=== PATIENT | female | born 1940 | race Caucasian/White ===

== ENCOUNTER 2018-04-28 20:28 | Emergency (ER) | payer SELFPAY, OTHER ==
[2018-04-29 00:49] LABS: ADD MAN DIFF? NO
[2018-04-29 00:52] LABS: WHITE BLOOD COUNT 3.9 10^3/ul (4.8-10.8)
[2018-04-29 00:52] LABS: BASOPHILS % 0.5 % (0.0-2.0); EOSINOPHILS # 0.1 10^3/ul (0.0-0.5); EOSINOPHILS % 2.1 % (0.0-7.0); HEMATOCRIT 32.7 % (37.0-47.0); HEMOGLOBIN 11.2 g/dl (12.0-16.0); LYMPHOCYTES # 1.3 10^3/ul (0.8-2.9); LYMPHOCYTES % 32.6 % (15.0-51.0); MEAN CORPUSCULAR HEMOGLOBIN 30.6 pg (29.0-33.0); MEAN CORPUSCULAR HGB CONC 34.3 g/dl (32.0-37.0); MEAN CORPUSCULAR VOLUME 89.3 fl (82.0-101.0); MEAN PLATELET VOLUME 9.7 fl (7.4-10.4); MONOCYTE # 0.5 10^3/ul (0.3-0.9); MONOCYTES % 11.8 % (0.0-11.0); NEUTROPHILS % 52.5 % (39.0-77.0); PLATELET COUNT 106 10^3/UL (140-415); RED BLOOD COUNT 3.66 10^6/ul (4.20-5.40); RED CELL DISTRIBUTION WIDTH 16.1 % (11.5-14.5)
[2018-04-29 01:11] LABS: INR 1.04; PROTIME 13.7 Sec (11.9-14.9); PT RATIO 1.1
[2018-04-29 01:16] LABS: ALANINE AMINOTRANSFERASE 48 IU/L (13-69); ALBUMIN 3.4 g/dl (3.3-4.9); ALKALINE PHOSPHATASE 219 IU/L (42-121); ANION GAP 13 (8-16); ASPARTATE AMINO TRANSFERASE 49 IU/L (15-46); BILIRUBIN,INDIRECT 1.5 mg/dl (0-1.1); BILIRUBIN,TOTAL 1.5 mg/dl (0.2-1.3); BLOOD UREA NITROGEN 13 mg/dl (7-20); CARBON DIOXIDE 24 mmol/L (21-31); CHLORIDE 99 mmol/L (97-110); CREATININE 0.66 mg/dl (0.44-1.00); GLUCOSE 100 mg/dl (70-220); LIPASE 403 U/L (23-300); POTASSIUM 4.1 mmol/L (3.5-5.1); SODIUM 132 mmol/L (135-144); TOTAL PROTEIN 7.6 g/dl (6.1-8.1)
== END 2018-04-29 03:41 | disposition home or self-care (01) ==
LOC: E/R 20:28
DX: K70.31 Alcoholic cirrhosis of liver with ascites (principal); D72.819 Decreased white blood cell count, unspecified; D50.9 Iron deficiency anemia, unspecified; D69.6 Thrombocytopenia, unspecified; E87.1 Hypo-osmolality and hyponatremia; E80.6 Other disorders of bilirubin metabolism; R74.0 Nonspecific elevation of levels of transaminase and lactic acid dehydrogenase [LDH]; E11.9 Type 2 diabetes mellitus without complications
CPT/HCPCS: 36415; 80053; 83690; 85025; 85610; 99283

== ENCOUNTER 2018-06-15 11:49 | Inpatient (IN) | payer OTHER ==
[2018-06-15 12:37] LABS: ADD MAN DIFF? NO
[2018-06-15 12:42] LABS: BASOPHILS % 0.8 % (0.0-2.0); EOSINOPHILS # 0.1 10^3/ul (0.0-0.5); EOSINOPHILS % 1.2 % (0.0-7.0); HEMATOCRIT 33.5 % (37.0-47.0); HEMOGLOBIN 11.4 g/dl (12.0-16.0); LYMPHOCYTES # 1.4 10^3/ul (0.8-2.9); LYMPHOCYTES % 28.7 % (15.0-51.0); MEAN CORPUSCULAR HEMOGLOBIN 30.3 pg (29.0-33.0); MEAN CORPUSCULAR VOLUME 89.1 fl (82.0-101.0); MONOCYTE # 0.5 10^3/ul (0.3-0.9); MONOCYTES % 10.1 % (0.0-11.0); NEUTROPHIL # 2.9 10^3/ul (1.6-7.5); NEUTROPHILS % 58.8 % (39.0-77.0); PLATELET COUNT 202 10^3/UL (140-415); RED BLOOD COUNT 3.76 10^6/ul (4.20-5.40); RED CELL DISTRIBUTION WIDTH 14.6 % (11.5-14.5)
[2018-06-15 12:59] LABS: AMMONIA 75 umol/l (9-30)
[2018-06-15 13:06] LABS: ANION GAP 14 (5-13); BLOOD UREA NITROGEN 24 mg/dl (7-20); CARBON DIOXIDE 21 mmol/L (21-31); CHLORIDE 98 mmol/L (97-110); CHOL/HDL RATIO 2.7 RATIO; CHOLESTEROL 147 mg/dl (100-200); CREATININE 0.79 mg/dl (0.44-1.00); GLUCOSE 129 mg/dl (70-220); HDL CHOLESTEROL 53 mg/dl (33-92); LDL CHOLESTEROL,CALCULATED 78 mg/dl; POTASSIUM 4.1 mmol/L (3.5-5.1); SODIUM 133 mmol/L (135-144); TRIGLYCERIDES 81 mg/dl (0-149)
[2018-06-15 13:08] LABS: INR 1.18; PROTIME 15.2 Sec (11.9-14.9); PT RATIO 1.2
[2018-06-15 13:09] LABS: PARTIAL THROMBOPLASTIN TIME 34.3 Sec (23.0-35.0)
[2018-06-15 13:18] LABS: TROPONIN-I < 0.012 ng/ml (0.000-0.120)
[2018-06-15 13:51] LABS: HEMOGLOBIN A1C 5.2 % (0-5.9)
[2018-06-15] MEDS: LACTULOSE 30ML CUP PO ×3 (13:57→23:11)
[2018-06-15] MEDS ORDERED: ACETAMINOPHEN 325 MG TAB PO ×2 (14:00→14:30)
[2018-06-15] MEDS ORDERED: ONDANSETRON 4 MG INJ IV ×2 (14:00→14:30)
[2018-06-15] MEDS ORDERED: morphine 2 MG INJ IV (14:30)
[2018-06-15] MEDS ORDERED: NACL 0.9% 3 ML SYG IV (14:30)
[2018-06-15] MEDS ORDERED: HYDROCODONE/APAP (5/325) TAB PO (14:30)
[2018-06-15 14:51] LABS: ALANINE AMINOTRANSFERASE 42 IU/L (13-69); ALBUMIN 3.8 g/dl (3.3-4.9); ALKALINE PHOSPHATASE 190 IU/L (42-121); ASPARTATE AMINO TRANSFERASE 54 IU/L (15-46); BILIRUBIN,INDIRECT 1.8 mg/dl (0-1.1); BILIRUBIN,TOTAL 1.8 mg/dl (0.2-1.3); TOTAL PROTEIN 7.5 g/dl (6.1-8.1)
[2018-06-15] MEDS: SOD CHLORIDE 0.9% 1,000 ML IV (18:28)
[2018-06-15] MEDS: PROPRANOLOL 10 MG TAB PO (21:00)
[2018-06-15] MEDS: RIFAXIMIN 550 MG TAB PO (22:54)
[2018-06-16 05:46] LABS: ADD MAN DIFF? NO
[2018-06-16 05:54] LABS: WHITE BLOOD COUNT 4.4 10^3/ul (4.8-10.8)
[2018-06-16 05:54] LABS: BASOPHILS % 0.7 % (0.0-2.0); EOSINOPHILS # 0.1 10^3/ul (0.0-0.5); EOSINOPHILS % 1.4 % (0.0-7.0); HEMATOCRIT 25.7 % (37.0-47.0); LYMPHOCYTES # 1.4 10^3/ul (0.8-2.9); LYMPHOCYTES % 32.4 % (15.0-51.0); MEAN CORPUSCULAR HEMOGLOBIN 31.1 pg (29.0-33.0); MEAN CORPUSCULAR VOLUME 88.9 fl (82.0-101.0); MEAN PLATELET VOLUME 10.6 fl (7.4-10.4); MONOCYTE # 0.6 10^3/ul (0.3-0.9); MONOCYTES % 13.8 % (0.0-11.0); NEUTROPHIL # 2.3 10^3/ul (1.6-7.5); NEUTROPHILS % 51.5 % (39.0-77.0); PLATELET COUNT 141 10^3/UL (140-415); RED BLOOD COUNT 2.89 10^6/ul (4.20-5.40); RED CELL DISTRIBUTION WIDTH 14.7 % (11.5-14.5)
[2018-06-16 06:02] LABS: HEMOGLOBIN A1C 5.4 % (0-5.9)
[2018-06-16 06:15] LABS: AMMONIA 52 umol/l (9-30)
[2018-06-16 06:27] LABS: ALANINE AMINOTRANSFERASE 43 IU/L (13-69); ALBUMIN 2.9 g/dl (3.3-4.9); ALBUMIN/GLOBULIN RATIO 0.93; ALKALINE PHOSPHATASE 150 IU/L (42-121); ANION GAP 11 (5-13); ASPARTATE AMINO TRANSFERASE 46 IU/L (15-46); BILIRUBIN,INDIRECT 1.5 mg/dl (0-1.1); BILIRUBIN,TOTAL 1.5 mg/dl (0.2-1.3); BLOOD UREA NITROGEN 17 mg/dl (7-20); CALCIUM 8.3 mg/dl (8.4-10.2); CARBON DIOXIDE 20 mmol/L (21-31); CHLORIDE 104 mmol/L (97-110); CREATININE 0.56 mg/dl (0.44-1.00); GLUCOSE 108 mg/dl (70-220); POTASSIUM 3.8 mmol/L (3.5-5.1); SODIUM 135 mmol/L (135-144)
[2018-06-16] MEDS: LACTULOSE 30ML CUP PO ×2 (07:07→11:52)
[2018-06-16] MEDS: PANTOPRAZOLE (EC) 40 MG TAB PO (07:07)
[2018-06-16] MEDS: PROPRANOLOL 10 MG TAB PO ×2 (08:22→21:28)
[2018-06-16] MEDS: SPIRONOLACTONE 50 MG TAB PO (08:23)
[2018-06-16] MEDS: FUROSEMIDE 40 MG TAB PO (08:23)
[2018-06-16] MEDS: RIFAXIMIN 550 MG TAB PO ×2 (08:23→21:28)
[2018-06-16 17:54] LABS: ADD UMIC NO; UR ASCORBIC ACID NEGATIVE (NEGATIVE); UR BILIRUBIN (Dip) NEGATIVE (NEGATIVE); UR BLOOD (Dip) NEGATIVE (NEGATIVE); UR CLARITY CLEAR (CLEAR); UR COLOR YELLOW (YELLOW); UR GLUCOSE (Dip) NEGATIVE (NEGATIVE); UR KETONES (Dip) NEGATIVE (NEGATIVE); UR LEUKOCYTE ESTERASE (Dip) NEGATIVE Leu/ul (NEGATIVE); UR NITRITE (Dip) NEGATIVE (NEGATIVE); UR TOTAL PROTEIN (Dip) NEGATIVE (NEGATIVE); UR UROBILINOGEN (Dip) 2+ mg/dL (NEGATIVE)
[2018-06-16 18:10] LABS: AMPHETAMINE/METHAMPHETAMINE Negative (NEGATIVE); BARBITURATES Negative (NEGATIVE); BENZODIAZEPINES Negative (NEGATIVE); CANNABINOIDS Negative (NEGATIVE); COCAINE Negative (NEGATIVE); OPIATES Negative (NEGATIVE)
[2018-06-17 06:05] LABS: ADD MAN DIFF? NO
[2018-06-17 06:10] LABS: BASOPHILS % 0.7 % (0.0-2.0); EOSINOPHILS # 0.1 10^3/ul (0.0-0.5); EOSINOPHILS % 2.3 % (0.0-7.0); HEMOGLOBIN 9.1 g/dl (12.0-16.0); LYMPHOCYTES # 1.3 10^3/ul (0.8-2.9); LYMPHOCYTES % 28.9 % (15.0-51.0); MEAN CORPUSCULAR HEMOGLOBIN 30.4 pg (29.0-33.0); MEAN CORPUSCULAR HGB CONC 33.7 g/dl (32.0-37.0); MEAN CORPUSCULAR VOLUME 90.3 fl (82.0-101.0); MEAN PLATELET VOLUME 10.4 fl (7.4-10.4); MONOCYTE # 0.6 10^3/ul (0.3-0.9); MONOCYTES % 14.3 % (0.0-11.0); NEUTROPHIL # 2.4 10^3/ul (1.6-7.5); NEUTROPHILS % 53.6 % (39.0-77.0); PLATELET COUNT 124 10^3/UL (140-415); RED BLOOD COUNT 2.99 10^6/ul (4.20-5.40); RED CELL DISTRIBUTION WIDTH 14.4 % (11.5-14.5)
[2018-06-17 06:10] LABS: WHITE BLOOD COUNT 4.4 10^3/ul (4.8-10.8)
[2018-06-17] MEDS: PANTOPRAZOLE (EC) 40 MG TAB PO (06:24)
[2018-06-17 06:36] LABS: ANION GAP 6 (5-13); BLOOD UREA NITROGEN 14 mg/dl (7-20); CALCIUM 8.2 mg/dl (8.4-10.2); CARBON DIOXIDE 23 mmol/L (21-31); CHLORIDE 103 mmol/L (97-110); GLUCOSE 122 mg/dl (70-220); POTASSIUM 3.8 mmol/L (3.5-5.1); SODIUM 132 mmol/L (135-144)
[2018-06-17 07:06] LABS: AMMONIA 129 umol/l (9-30)
[2018-06-17] MEDS: PROPRANOLOL 10 MG TAB PO ×2 (08:10→21:02)
[2018-06-17] MEDS: RIFAXIMIN 550 MG TAB PO ×2 (08:10→20:57)
[2018-06-17] MEDS: FUROSEMIDE 40 MG TAB PO (08:11)
[2018-06-17] MEDS: SPIRONOLACTONE 50 MG TAB PO (08:11)
[2018-06-17] MEDS: LACTULOSE 30ML CUP PO ×3 (08:11→22:22)
[2018-06-18] MEDS: PANTOPRAZOLE (EC) 40 MG TAB PO (05:50)
[2018-06-18] MEDS: LACTULOSE 30ML CUP PO ×3 (05:50→21:31)
[2018-06-18 06:12] LABS: ADD MAN DIFF? NO
[2018-06-18 06:22] LABS: WHITE BLOOD COUNT 5.2 10^3/ul (4.8-10.8)
[2018-06-18 06:22] LABS: BASOPHILS % 0.8 % (0.0-2.0); EOSINOPHILS # 0.1 10^3/ul (0.0-0.5); EOSINOPHILS % 2.1 % (0.0-7.0); HEMATOCRIT 26.3 % (37.0-47.0); LYMPHOCYTES # 1.5 10^3/ul (0.8-2.9); LYMPHOCYTES % 28.5 % (15.0-51.0); MEAN CORPUSCULAR HEMOGLOBIN 30.7 pg (29.0-33.0); MEAN CORPUSCULAR HGB CONC 34.2 g/dl (32.0-37.0); MEAN CORPUSCULAR VOLUME 89.8 fl (82.0-101.0); MEAN PLATELET VOLUME 10.5 fl (7.4-10.4); MONOCYTE # 0.8 10^3/ul (0.3-0.9); MONOCYTES % 14.8 % (0.0-11.0); NEUTROPHIL # 2.8 10^3/ul (1.6-7.5); NEUTROPHILS % 53.4 % (39.0-77.0); PLATELET COUNT 125 10^3/UL (140-415); RED BLOOD COUNT 2.93 10^6/ul (4.20-5.40); RED CELL DISTRIBUTION WIDTH 14.6 % (11.5-14.5)
[2018-06-18 06:48] LABS: AMMONIA 72 umol/l (9-30)
[2018-06-18 07:51] LABS: ANION GAP 8 (5-13); BLOOD UREA NITROGEN 15 mg/dl (7-20); CALCIUM 8.1 mg/dl (8.4-10.2); CARBON DIOXIDE 21 mmol/L (21-31); CHLORIDE 104 mmol/L (97-110); CREATININE 0.53 mg/dl (0.44-1.00); GLUCOSE 126 mg/dl (70-220); PHOSPHORUS 2.8 mg/dl (2.5-4.9); POTASSIUM 3.8 mmol/L (3.5-5.1); SODIUM 133 mmol/L (135-144)
[2018-06-18] MEDS: PROPRANOLOL 10 MG TAB PO ×2 (08:39→21:00)
[2018-06-18] MEDS: RIFAXIMIN 550 MG TAB PO ×2 (08:43→21:31)
[2018-06-18] MEDS: FUROSEMIDE 40 MG TAB PO (08:43)
[2018-06-18] MEDS: SPIRONOLACTONE 50 MG TAB PO (08:43)
[2018-06-19] MEDS: PANTOPRAZOLE (EC) 40 MG TAB PO (05:37)
[2018-06-19] MEDS: LACTULOSE 30ML CUP PO ×3 (05:37→21:46)
[2018-06-19 05:48] LABS: ADD MAN DIFF? NO
[2018-06-19 05:56] LABS: WHITE BLOOD COUNT 4.8 10^3/ul (4.8-10.8)
[2018-06-19 05:56] LABS: BASOPHILS % 0.6 % (0.0-2.0); EOSINOPHILS # 0.1 10^3/ul (0.0-0.5); EOSINOPHILS % 2.5 % (0.0-7.0); HEMATOCRIT 25.9 % (37.0-47.0); HEMOGLOBIN 8.8 g/dl (12.0-16.0); LYMPHOCYTES # 1.4 10^3/ul (0.8-2.9); MEAN CORPUSCULAR HEMOGLOBIN 30.7 pg (29.0-33.0); MEAN CORPUSCULAR VOLUME 90.2 fl (82.0-101.0); MEAN PLATELET VOLUME 10.4 fl (7.4-10.4); MONOCYTE # 0.6 10^3/ul (0.3-0.9); MONOCYTES % 12.9 % (0.0-11.0); NEUTROPHIL # 2.6 10^3/ul (1.6-7.5); NEUTROPHILS % 54.6 % (39.0-77.0); PLATELET COUNT 119 10^3/UL (140-415); RED BLOOD COUNT 2.87 10^6/ul (4.20-5.40); RED CELL DISTRIBUTION WIDTH 14.5 % (11.5-14.5)
[2018-06-19 06:10] LABS: ALANINE AMINOTRANSFERASE 40 IU/L (13-69); ALBUMIN 2.7 g/dl (3.3-4.9); ALKALINE PHOSPHATASE 179 IU/L (42-121); ASPARTATE AMINO TRANSFERASE 56 IU/L (15-46); TOTAL PROTEIN 5.6 g/dl (6.1-8.1)
[2018-06-19 06:15] LABS: ANION GAP 7 (5-13); BLOOD UREA NITROGEN 15 mg/dl (7-20); CALCIUM 8.3 mg/dl (8.4-10.2); CARBON DIOXIDE 22 mmol/L (21-31); CHLORIDE 103 mmol/L (97-110); CREATININE 0.66 mg/dl (0.44-1.00); GLUCOSE 128 mg/dl (70-220); PHOSPHORUS 3.1 mg/dl (2.5-4.9); SODIUM 132 mmol/L (135-144)
[2018-06-19 06:16] LABS: AMMONIA 90 umol/l (9-30)
[2018-06-19] MEDS: SPIRONOLACTONE 50 MG TAB PO (08:08)
[2018-06-19] MEDS: RIFAXIMIN 550 MG TAB PO ×2 (08:09→21:47)
[2018-06-19] MEDS: FUROSEMIDE 40 MG TAB PO (08:09)
[2018-06-19] MEDS: PROPRANOLOL 10 MG TAB PO ×2 (09:00→21:47)
[2018-06-20] MEDS: PANTOPRAZOLE (EC) 40 MG TAB PO (05:51)
[2018-06-20] MEDS: LACTULOSE 30ML CUP PO ×2 (05:51→21:09)
[2018-06-20 06:06] LABS: ADD MAN DIFF? NO
[2018-06-20 06:10] LABS: WHITE BLOOD COUNT 5.4 10^3/ul (4.8-10.8)
[2018-06-20 06:10] LABS: BASOPHILS % 0.6 % (0.0-2.0); EOSINOPHILS # 0.2 10^3/ul (0.0-0.5); EOSINOPHILS % 2.8 % (0.0-7.0); HEMATOCRIT 25.7 % (37.0-47.0); HEMOGLOBIN 8.6 g/dl (12.0-16.0); LYMPHOCYTES # 1.5 10^3/ul (0.8-2.9); LYMPHOCYTES % 28.1 % (15.0-51.0); MEAN CORPUSCULAR HEMOGLOBIN 30.2 pg (29.0-33.0); MEAN CORPUSCULAR HGB CONC 33.5 g/dl (32.0-37.0); MEAN CORPUSCULAR VOLUME 90.2 fl (82.0-101.0); MEAN PLATELET VOLUME 10.7 fl (7.4-10.4); MONOCYTE # 0.7 10^3/ul (0.3-0.9); MONOCYTES % 13.4 % (0.0-11.0); NEUTROPHIL # 2.9 10^3/ul (1.6-7.5); NEUTROPHILS % 54.7 % (39.0-77.0); PLATELET COUNT 128 10^3/UL (140-415); RED BLOOD COUNT 2.85 10^6/ul (4.20-5.40); RED CELL DISTRIBUTION WIDTH 14.7 % (11.5-14.5)
[2018-06-20 06:32] LABS: AMMONIA 65 umol/l (9-30)
[2018-06-20 06:33] LABS: ALANINE AMINOTRANSFERASE 53 IU/L (13-69); ALBUMIN 2.6 g/dl (3.3-4.9); ALBUMIN/GLOBULIN RATIO 0.78; ALKALINE PHOSPHATASE 188 IU/L (42-121); ANION GAP 7 (5-13); ASPARTATE AMINO TRANSFERASE 60 IU/L (15-46); BILIRUBIN,INDIRECT 1.2 mg/dl (0-1.1); BILIRUBIN,TOTAL 1.2 mg/dl (0.2-1.3); BLOOD UREA NITROGEN 21 mg/dl (7-20); CALCIUM 8.4 mg/dl (8.4-10.2); CARBON DIOXIDE 23 mmol/L (21-31); CHLORIDE 103 mmol/L (97-110); CREATININE 0.65 mg/dl (0.44-1.00); GLUCOSE 122 mg/dl (70-220); MAGNESIUM 2.1 mg/dl (1.7-2.5); POTASSIUM 4.3 mmol/L (3.5-5.1); SODIUM 133 mmol/L (135-144); TOTAL PROTEIN 5.9 g/dl (6.1-8.1)
[2018-06-20] MEDS: PROPRANOLOL 10 MG TAB PO ×2 (08:19→21:10)
[2018-06-20] MEDS: SPIRONOLACTONE 50 MG TAB PO (08:20)
[2018-06-20] MEDS: FUROSEMIDE 40 MG TAB PO (08:21)
[2018-06-20] MEDS: RIFAXIMIN 550 MG TAB PO ×2 (08:21→21:10)
[2018-06-21] MEDS: PANTOPRAZOLE (EC) 40 MG TAB PO (06:10)
[2018-06-21] MEDS: SPIRONOLACTONE 50 MG TAB PO (07:52)
[2018-06-21] MEDS: FUROSEMIDE 40 MG TAB PO (07:52)
[2018-06-21] MEDS: LACTULOSE 30ML CUP PO ×2 (08:16→20:54)
[2018-06-21] MEDS: PROPRANOLOL 10 MG TAB PO ×2 (08:16→20:54)
[2018-06-21] MEDS: RIFAXIMIN 550 MG TAB PO (08:16)
[2018-06-21 08:21] LABS: ADD MAN DIFF? NO
[2018-06-21 08:25] LABS: WHITE BLOOD COUNT 5.2 10^3/ul (4.8-10.8)
[2018-06-21 08:25] LABS: BASOPHILS % 0.8 % (0.0-2.0); EOSINOPHILS # 0.1 10^3/ul (0.0-0.5); EOSINOPHILS % 2.7 % (0.0-7.0); HEMATOCRIT 24.9 % (37.0-47.0); HEMOGLOBIN 8.4 g/dl (12.0-16.0); LYMPHOCYTES # 1.6 10^3/ul (0.8-2.9); LYMPHOCYTES % 31.2 % (15.0-51.0); MEAN CORPUSCULAR HEMOGLOBIN 30.3 pg (29.0-33.0); MEAN CORPUSCULAR HGB CONC 33.7 g/dl (32.0-37.0); MEAN CORPUSCULAR VOLUME 89.9 fl (82.0-101.0); MEAN PLATELET VOLUME 10.7 fl (7.4-10.4); MONOCYTE # 0.7 10^3/ul (0.3-0.9); MONOCYTES % 12.5 % (0.0-11.0); NEUTROPHIL # 2.7 10^3/ul (1.6-7.5); NEUTROPHILS % 52.6 % (39.0-77.0); PLATELET COUNT 115 10^3/UL (140-415); RED BLOOD COUNT 2.77 10^6/ul (4.20-5.40)
[2018-06-21 08:41] LABS: AMMONIA 60 umol/l (9-30)
[2018-06-21 08:49] LABS: ALANINE AMINOTRANSFERASE 50 IU/L (13-69); ALBUMIN 2.7 g/dl (3.3-4.9); ALBUMIN/GLOBULIN RATIO 0.93; ALKALINE PHOSPHATASE 182 IU/L (42-121); ANION GAP 7 (5-13); ASPARTATE AMINO TRANSFERASE 58 IU/L (15-46); BILIRUBIN,INDIRECT 1.3 mg/dl (0-1.1); BILIRUBIN,TOTAL 1.3 mg/dl (0.2-1.3); BLOOD UREA NITROGEN 21 mg/dl (7-20); CALCIUM 8.4 mg/dl (8.4-10.2); CARBON DIOXIDE 23 mmol/L (21-31); CHLORIDE 103 mmol/L (97-110); CREATININE 0.62 mg/dl (0.44-1.00); GLUCOSE 120 mg/dl (70-220); POTASSIUM 4.1 mmol/L (3.5-5.1); SODIUM 133 mmol/L (135-144); TOTAL PROTEIN 5.6 g/dl (6.1-8.1)
[2018-06-22 05:59] LABS: ADD MAN DIFF? NO
[2018-06-22 06:27] LABS: BASOPHILS % 0.7 % (0.0-2.0); EOSINOPHILS # 0.1 10^3/ul (0.0-0.5); HEMATOCRIT 24.7 % (37.0-47.0); HEMOGLOBIN 8.3 g/dl (12.0-16.0); LYMPHOCYTES # 1.5 10^3/ul (0.8-2.9); LYMPHOCYTES % 34.3 % (15.0-51.0); MEAN CORPUSCULAR HEMOGLOBIN 30.4 pg (29.0-33.0); MEAN CORPUSCULAR HGB CONC 33.6 g/dl (32.0-37.0); MEAN CORPUSCULAR VOLUME 90.5 fl (82.0-101.0); MEAN PLATELET VOLUME 10.7 fl (7.4-10.4); MONOCYTE # 0.6 10^3/ul (0.3-0.9); MONOCYTES % 13.4 % (0.0-11.0); NEUTROPHIL # 2.1 10^3/ul (1.6-7.5); NEUTROPHILS % 48.4 % (39.0-77.0); PLATELET COUNT 115 10^3/UL (140-415); RED BLOOD COUNT 2.73 10^6/ul (4.20-5.40); RED CELL DISTRIBUTION WIDTH 14.8 % (11.5-14.5)
[2018-06-22 06:27] LABS: WHITE BLOOD COUNT 4.3 10^3/ul (4.8-10.8)
[2018-06-22] MEDS: PANTOPRAZOLE (EC) 40 MG TAB PO (06:36)
[2018-06-22 06:51] LABS: ALANINE AMINOTRANSFERASE 62 IU/L (13-69); ALBUMIN 2.5 g/dl (3.3-4.9); ALBUMIN/GLOBULIN RATIO 0.75; ALKALINE PHOSPHATASE 215 IU/L (42-121); ANION GAP 7 (5-13); ASPARTATE AMINO TRANSFERASE 73 IU/L (15-46); BILIRUBIN,INDIRECT 1.3 mg/dl (0-1.1); BILIRUBIN,TOTAL 1.3 mg/dl (0.2-1.3); BLOOD UREA NITROGEN 20 mg/dl (7-20); CALCIUM 8.3 mg/dl (8.4-10.2); CARBON DIOXIDE 21 mmol/L (21-31); CHLORIDE 105 mmol/L (97-110); CREATININE 0.54 mg/dl (0.44-1.00); GLUCOSE 116 mg/dl (70-220); MAGNESIUM 2.1 mg/dl (1.7-2.5); POTASSIUM 4.1 mmol/L (3.5-5.1); SODIUM 133 mmol/L (135-144); TOTAL PROTEIN 5.8 g/dl (6.1-8.1)
[2018-06-22 06:53] LABS: AMMONIA 50 umol/l (9-30)
[2018-06-22] MEDS: SPIRONOLACTONE 50 MG TAB PO (08:05)
[2018-06-22] MEDS: FUROSEMIDE 40 MG TAB PO (08:05)
[2018-06-22] MEDS: PROPRANOLOL 10 MG TAB PO (08:10)
[2018-06-22] MEDS: ZINC SULFATE 220 MG CAP PO (08:12)
[2018-06-22] MEDS: LACTULOSE 30ML CUP PO (08:13)
== END 2018-06-22 16:05 | disposition home health service (06) | DRG 442 ==
LOC: E/R 11:49 → 2NE 06-20 13:20 → 5EC 13:54 → 6WM 18:04
DX: K72.00 Acute and subacute hepatic failure without coma (principal); R18.8 Other ascites; K74.60 Unspecified cirrhosis of liver; R19.7 Diarrhea, unspecified; D63.8 Anemia in other chronic diseases classified elsewhere
CPT/HCPCS: 36415; 70450; 71045; 76705; 80048; 80053; 80061; 80076; 80307; 81003; 82140; 83036; 83735; 84100; 84484; 85025; 85610; 85730; 92526; 92610; 93005; 99285-25

== ENCOUNTER 2018-10-20 11:48 | Inpatient (IN) | payer OTHER ==
[2018-10-20 12:30] LABS: ADD MAN DIFF? NO
[2018-10-20 12:36] LABS: WHITE BLOOD COUNT 4.7 10^3/ul (4.8-10.8)
[2018-10-20 12:36] LABS: BASOPHILS % 0.6 % (0.0-2.0); EOSINOPHILS # 0.2 10^3/ul (0.0-0.5); EOSINOPHILS % 3.6 % (0.0-7.0); HEMATOCRIT 23.8 % (37.0-47.0); HEMOGLOBIN 7.8 g/dl (12.0-16.0); LYMPHOCYTES % 21.1 % (15.0-51.0); MEAN CORPUSCULAR HGB CONC 32.8 g/dl (32.0-37.0); MEAN CORPUSCULAR VOLUME 94.4 fl (82.0-101.0); MEAN PLATELET VOLUME 11.2 fl (7.4-10.4); MONOCYTE # 0.5 10^3/ul (0.3-0.9); MONOCYTES % 10.1 % (0.0-11.0); NEUTROPHILS % 64.2 % (39.0-77.0); PLATELET COUNT 144 10^3/UL (140-415); RED BLOOD COUNT 2.52 10^6/ul (4.20-5.40); RED CELL DISTRIBUTION WIDTH 17.4 % (11.5-14.5)
[2018-10-20 12:55] LABS: ALANINE AMINOTRANSFERASE 35 IU/L (13-69); ALBUMIN 2.4 g/dl (3.3-4.9); ALBUMIN/GLOBULIN RATIO 0.66; ALKALINE PHOSPHATASE 164 IU/L (42-121); ANION GAP 12 (5-13); ASPARTATE AMINO TRANSFERASE 31 IU/L (15-46); BILIRUBIN,INDIRECT 0.6 mg/dl (0-1.1); BILIRUBIN,TOTAL 0.6 mg/dl (0.2-1.3); BLOOD UREA NITROGEN 68 mg/dl (7-20); CALCIUM 8.2 mg/dl (8.4-10.2); CHLORIDE 114 mmol/L (97-110); GLUCOSE 82 mg/dl (70-220); INR 1.26; PROTIME 15.9 Sec (11.9-14.9); PT RATIO 1.2; SODIUM 133 mmol/L (135-144)
[2018-10-20 12:56] LABS: PARTIAL THROMBOPLASTIN TIME 37.3 Sec (23.0-35.0)
[2018-10-20 12:56] LABS: AMMONIA 237 umol/l (9-30)
[2018-10-20] MEDS: ALBUMIN HUMAN 25% 100 ML IV ×3 (12:57→23:40)
[2018-10-20 12:59] LABS: CARBON DIOXIDE 7 mmol/L (21-31)
[2018-10-20 13:06] LABS: TROPONIN-I < 0.012 ng/ml (0.000-0.120)
[2018-10-20] MEDS: CEFEPIME 2GM/50 ML (PMX) 50 ML IVPB (14:06)
[2018-10-20] MEDS: SODIUM CHLORIDE 0.9% 1L BAG IV* (14:06)
[2018-10-20] MEDS: LACTULOSE 30ML CUP NGT (14:07)
[2018-10-20] MEDS: NA BICARBONATE 8.4% 50 ML SYG IV ×2 (14:27→20:14)
[2018-10-20] MEDS: CA CHLORIDE 10% 10 ML SYRINGE IV (14:27)
[2018-10-20] MEDS: VANCOMYCIN 1 GM (PMX) 250 ML IVPB (15:12)
[2018-10-20] MEDS: SODIUM POLYSTYRENE 15 GM KIT (POWDER + SORBITOL) NGT (15:27)
[2018-10-20] MEDS ORDERED: ALBUMIN HUMAN 25% 50 ML IV (16:00)
[2018-10-20] MEDS ORDERED: LACTULOSE 30ML CUP PO (16:30)
[2018-10-20] MEDS ORDERED: VANCOMYCIN IV PER PHARMACY XX (16:30)
[2018-10-20] MEDS: LIDOCAINE 1% (MPF) 5 ML VIAL SC (18:00)
[2018-10-20] MEDS: NORepinephrine 8MG/250 ML (PMX 250 ML IV ×2 (18:50→21:15)
[2018-10-20 19:23] LABS: PARTIAL THROMBOPLASTIN TIME 42.2 Sec (23.0-35.0)
[2018-10-20 19:34] LABS: CREATININE,URINE RANDOM 131.99 mg/dl (20-320)
[2018-10-20 19:34] LABS: SODIUM,URINE RANDOM 30 mmol/L (30-90)
[2018-10-20 19:40] LABS: AADO2 Arterial 0.2 mmHg (7.0-24.0); Arterial Blood Gas Oxygen Sat 97.7 mmHG (95.0-100.0); Arterial COHb 0.2 % (0.0-3.0); Arterial Fraction of Oxyhgb 97.2 % (93.0-99.0); Arterial HCO3 8.2 mmol/L (22.0-26.0); Arterial MetHb 0.3 % (0.0-1.5); Arterial pCO2 16.3 mmhg (35-45); MODE ROOM AIR; Site Right Brachial
[2018-10-20 19:50] LABS: LACTIC ACID 2.3 mmol/L (0.5-2.0)
[2018-10-20 19:55] LABS: ANION GAP 13 (5-13); BLOOD UREA NITROGEN 65 mg/dl (7-20); CALCIUM 8.9 mg/dl (8.4-10.2); CHLORIDE 118 mmol/L (97-110); CREATININE 4.96 mg/dl (0.44-1.00); GLUCOSE 89 mg/dl (70-220); POTASSIUM 5.4 mmol/L (3.5-5.1); SODIUM 137 mmol/L (135-144)
[2018-10-20 20:02] LABS: CARBON DIOXIDE 6 mmol/L (21-31)
[2018-10-20 20:16] LABS: ADD UMIC YES; UR ASCORBIC ACID NEGATIVE (NEGATIVE); UR BACTERIA FEW /HPF (NONE SEEN); UR BILIRUBIN (Dip) NEGATIVE (NEGATIVE); UR BLOOD (Dip) 1+ mg/dL (NEGATIVE); UR BUDDING YEAST MANY /HPF (NONE SEEN); UR CLARITY TURBID (CLEAR); UR COLOR AMBER (YELLOW); UR GLUCOSE (Dip) NEGATIVE (NEGATIVE); UR KETONES (Dip) NEGATIVE (NEGATIVE); UR LEUKOCYTE ESTERASE (Dip) 3+ Leu/ul (NEGATIVE); UR MUCUS FEW /HPF (NONE SEEN); UR NITRITE (Dip) NEGATIVE (NEGATIVE); UR RBC 34 /HPF (0-5); UR SPECIFIC GRAVITY (Dip) 1.013 (1.003-1.030); UR TOTAL PROTEIN (Dip) 1+ mg/dl (NEGATIVE); UR UROBILINOGEN (Dip) NEGATIVE (NEGATIVE); UR WBC > 182 /HPF (0-5)
[2018-10-20] MEDS ORDERED: RIFAXIMIN 550 MG TAB PO (21:00)
[2018-10-20] MEDS: PIPER-TAZO 2.25 GM (PMX) 50 ML IVPB (21:20)
[2018-10-20] MEDS: HEPARIN 5,000 UNIT/1 ML VIAL SC (21:22)
[2018-10-20] MEDS: LACTULOSE 30ML CUP PO (21:30)
[2018-10-20 23:08] LABS: AADO2 Arterial 17.6 mmHg (7.0-24.0); Arterial Base Excess -11.7 mmol/L (-3.0-3); Arterial Blood Gas Oxygen Sat 97.3 mmHG (95.0-100.0); Arterial COHb 0.2 % (0.0-3.0); Arterial Fraction of Oxyhgb 96.8 % (93.0-99.0); Arterial HCO3 10.7 mmol/L (22.0-26.0); Arterial MetHb 0.3 % (0.0-1.5); Arterial pCO2 16.2 mmhg (35-45); MODE ROOM AIR; Site Right Brachial
[2018-10-20] MEDS: RIFAXIMIN 550 MG TAB PO (23:39)
[2018-10-21] MEDS: LACTULOSE 30ML CUP PO ×4 (05:06→22:27)
[2018-10-21 05:10] LABS: WHITE BLOOD COUNT 8.5 10^3/ul (4.8-10.8)
[2018-10-21 05:10] LABS: ADD MAN DIFF? NO; BASOPHILS % 0.5 % (0.0-2.0); EOSINOPHILS # 0.1 10^3/ul (0.0-0.5); EOSINOPHILS % 1.5 % (0.0-7.0); HEMATOCRIT 23.7 % (37.0-47.0); LYMPHOCYTES # 0.9 10^3/ul (0.8-2.9); LYMPHOCYTES % 10.9 % (15.0-51.0); MEAN CORPUSCULAR HEMOGLOBIN 30.8 pg (29.0-33.0); MEAN CORPUSCULAR HGB CONC 33.8 g/dl (32.0-37.0); MEAN CORPUSCULAR VOLUME 91.2 fl (82.0-101.0); MONOCYTE # 0.8 10^3/ul (0.3-0.9); MONOCYTES % 8.9 % (0.0-11.0); NEUTROPHIL # 6.6 10^3/ul (1.6-7.5); NEUTROPHILS % 77.7 % (39.0-77.0); PLATELET COUNT 185 10^3/UL (140-415); RED CELL DISTRIBUTION WIDTH 17.4 % (11.5-14.5)
[2018-10-21] MEDS: PIPER-TAZO 2.25 GM (PMX) 50 ML IVPB ×3 (05:22→21:13)
[2018-10-21 05:37] LABS: HEMOGLOBIN A1C 5.4 % (0-5.9)
[2018-10-21 05:48] LABS: AMMONIA 45 umol/l (9-30)
[2018-10-21 06:00] LABS: ANION GAP 16 (5-13); BLOOD UREA NITROGEN 66 mg/dl (7-20); CARBON DIOXIDE 10 mmol/L (21-31); CHLORIDE 119 mmol/L (97-110); CREATININE 5.01 mg/dl (0.44-1.00); GLUCOSE 116 mg/dl (70-220); MAGNESIUM 1.9 mg/dl (1.7-2.5); PHOSPHORUS 7.8 mg/dl (2.5-4.9); POTASSIUM 4.7 mmol/L (3.5-5.1); SODIUM 145 mmol/L (135-144)
[2018-10-21 06:10] LABS: ALANINE AMINOTRANSFERASE 29 IU/L (13-69); ALBUMIN 3.3 g/dl (3.3-4.9); ALBUMIN/GLOBULIN RATIO 1.03; ALKALINE PHOSPHATASE 128 IU/L (42-121); ANION GAP 16 (5-13); ASPARTATE AMINO TRANSFERASE 30 IU/L (15-46); BILIRUBIN,INDIRECT 1.4 mg/dl (0-1.1); BILIRUBIN,TOTAL 1.4 mg/dl (0.2-1.3); BLOOD UREA NITROGEN 67 mg/dl (7-20); CARBON DIOXIDE 10 mmol/L (21-31); CHLORIDE 116 mmol/L (97-110); CREATININE 4.78 mg/dl (0.44-1.00); GLUCOSE 114 mg/dl (70-220); POTASSIUM 4.7 mmol/L (3.5-5.1); SODIUM 142 mmol/L (135-144); TOTAL PROTEIN 6.5 g/dl (6.1-8.1)
[2018-10-21] MEDS: ALBUMIN HUMAN 25% 100 ML IV (08:49)
[2018-10-21] MEDS: HEPARIN 5,000 UNIT/1 ML VIAL SC ×2 (08:50→21:12)
[2018-10-21] MEDS: RIFAXIMIN 550 MG TAB PO ×2 (08:50→21:10)
[2018-10-21] MEDS: NORepinephrine 8MG/250 ML (PMX 250 ML IV ×2 (08:53→17:34)
[2018-10-21 09:20] LABS: Arterial Base Excess -13.3 mmol/L (-3.0-3); Arterial Blood Gas Oxygen Sat 97.6 mmHG (95.0-100.0); Arterial COHb 0.3 % (0.0-3.0); Arterial HCO3 9.5 mmol/L (22.0-26.0); Arterial MetHb 0.3 % (0.0-1.5); Arterial pCO2 15.7 mmhg (35-45); MODE ROOM AIR; Site Right Brachial
[2018-10-21] MEDS: MIDODRINE 5 MG TAB PO ×3 (10:12→21:11)
[2018-10-21] MEDS: SEVELAMER CARBONATE 800 MG TABLET PO ×2 (10:12→14:26)
[2018-10-21] MEDS: LIDOCAINE 1% (MPF) 5 ML VIAL (11:34)
[2018-10-21 14:21] LABS: FLD MN% 80.4 %; FLD PMN% 19.6 %; FLD WBC 51 /cmm
[2018-10-21 14:48] LABS: FLUID LD 125 U/L; FLUID TYPE ABDOMINAL FLUID
[2018-10-21 15:12] LABS: FLD TYPE PARACENTHESIS
[2018-10-21 15:12] LABS: FLD CLARITY CLEAR; FLD COLOR YELLOW; FLD RBC < 2000 /uL
[2018-10-22] MEDS: NORepinephrine 8MG/250 ML (PMX 250 ML IV ×2 (04:20→19:26)
[2018-10-22] MEDS: LACTULOSE 30ML CUP PO ×4 (04:33→23:19)
[2018-10-22 05:22] LABS: ADD MAN DIFF? NO
[2018-10-22 05:36] LABS: BASOPHIL # 0.1 10^3/ul (0.0-0.1); BASOPHILS % 0.7 % (0.0-2.0); EOSINOPHILS # 0.2 10^3/ul (0.0-0.5); HEMATOCRIT 23.2 % (37.0-47.0); HEMOGLOBIN 7.7 g/dl (12.0-16.0); LYMPHOCYTES # 1.1 10^3/ul (0.8-2.9); LYMPHOCYTES % 12.3 % (15.0-51.0); MEAN CORPUSCULAR HEMOGLOBIN 31.4 pg (29.0-33.0); MEAN CORPUSCULAR HGB CONC 33.2 g/dl (32.0-37.0); MEAN CORPUSCULAR VOLUME 94.7 fl (82.0-101.0); NEUTROPHIL # 6.4 10^3/ul (1.6-7.5); NEUTROPHILS % 73.5 % (39.0-77.0); PLATELET COUNT 161 10^3/UL (140-415); RED BLOOD COUNT 2.45 10^6/ul (4.20-5.40); RED CELL DISTRIBUTION WIDTH 17.5 % (11.5-14.5)
[2018-10-22 05:36] LABS: WHITE BLOOD COUNT 8.7 10^3/ul (4.8-10.8)
[2018-10-22] MEDS: PIPER-TAZO 2.25 GM (PMX) 50 ML IVPB ×3 (05:43→21:38)
[2018-10-22] MEDS: MIDODRINE 5 MG TAB PO ×3 (05:44→21:39)
[2018-10-22 06:34] LABS: MAGNESIUM 1.9 mg/dl (1.7-2.5)
[2018-10-22 06:34] LABS: PHOSPHORUS 7.4 mg/dl (2.5-4.9)
[2018-10-22 06:37] LABS: VANCOMYCIN,RANDOM 8.5 ug/ml
[2018-10-22 06:40] LABS: ALANINE AMINOTRANSFERASE 27 IU/L (13-69); ALKALINE PHOSPHATASE 99 IU/L (42-121); ANION GAP 14 (5-13); ASPARTATE AMINO TRANSFERASE 27 IU/L (15-46); BILIRUBIN,INDIRECT 1.2 mg/dl (0-1.1); BILIRUBIN,TOTAL 1.2 mg/dl (0.2-1.3); BLOOD UREA NITROGEN 74 mg/dl (7-20); CALCIUM 9.1 mg/dl (8.4-10.2); CHLORIDE 125 mmol/L (97-110); CREATININE 4.32 mg/dl (0.44-1.00); GLUCOSE 133 mg/dl (70-220); POTASSIUM 4.4 mmol/L (3.5-5.1); SODIUM 148 mmol/L (135-144)
[2018-10-22 06:50] LABS: CARBON DIOXIDE 9 mmol/L (21-31)
[2018-10-22] MEDS: SEVELAMER CARBONATE 800 MG TABLET PO ×3 (07:35→17:19)
[2018-10-22] MEDS: RIFAXIMIN 550 MG TAB PO ×2 (09:34→20:56)
[2018-10-22] MEDS: HEPARIN 5,000 UNIT/1 ML VIAL SC ×2 (09:43→20:57)
[2018-10-22] MEDS: VANCOMYCIN 750 MG (PMX) 250 ML IVPB (12:12)
[2018-10-23] MEDS: LACTULOSE 30ML CUP PO ×3 (04:36→20:19)
[2018-10-23 05:18] LABS: ADD MAN DIFF? NO
[2018-10-23] MEDS: MIDODRINE 5 MG TAB PO ×3 (05:21→21:05)
[2018-10-23] MEDS: PIPER-TAZO 2.25 GM (PMX) 50 ML IVPB ×3 (05:21→21:05)
[2018-10-23 05:30] LABS: BASOPHILS % 0.5 % (0.0-2.0); EOSINOPHILS # 0.2 10^3/ul (0.0-0.5); EOSINOPHILS % 3.3 % (0.0-7.0); HEMATOCRIT 21.9 % (37.0-47.0); HEMOGLOBIN 7.1 g/dl (12.0-16.0); LYMPHOCYTES % 13.9 % (15.0-51.0); MEAN CORPUSCULAR HEMOGLOBIN 31.1 pg (29.0-33.0); MEAN CORPUSCULAR HGB CONC 32.4 g/dl (32.0-37.0); MEAN CORPUSCULAR VOLUME 96.1 fl (82.0-101.0); MEAN PLATELET VOLUME 11.1 fl (7.4-10.4); MONOCYTE # 0.7 10^3/ul (0.3-0.9); MONOCYTES % 9.5 % (0.0-11.0); NEUTROPHIL # 5.3 10^3/ul (1.6-7.5); NEUTROPHILS % 72.4 % (39.0-77.0); PLATELET COUNT 103 10^3/UL (140-415); RED BLOOD COUNT 2.28 10^6/ul (4.20-5.40); RED CELL DISTRIBUTION WIDTH 17.8 % (11.5-14.5)
[2018-10-23 05:30] LABS: WHITE BLOOD COUNT 7.3 10^3/ul (4.8-10.8)
[2018-10-23 05:51] LABS: ALANINE AMINOTRANSFERASE 27 IU/L (13-69); ALBUMIN 2.8 g/dl (3.3-4.9); ALBUMIN/GLOBULIN RATIO 0.87; ALKALINE PHOSPHATASE 101 IU/L (42-121); ANION GAP 16 (5-13); ASPARTATE AMINO TRANSFERASE 31 IU/L (15-46); BLOOD UREA NITROGEN 68 mg/dl (7-20); CALCIUM 8.7 mg/dl (8.4-10.2); CARBON DIOXIDE 10 mmol/L (21-31); CHLORIDE 120 mmol/L (97-110); CREATININE 4.06 mg/dl (0.44-1.00); GLUCOSE 107 mg/dl (70-220); POTASSIUM 3.7 mmol/L (3.5-5.1); SODIUM 146 mmol/L (135-144)
[2018-10-23] MEDS: SEVELAMER CARBONATE 800 MG TABLET PO ×3 (07:58→17:13)
[2018-10-23] MEDS: SOD CHLORIDE 0.45% 1,000 ML IV (08:15)
[2018-10-23] MEDS: ALBUMIN HUMAN 25% 100 ML IV ×2 (08:17→16:06)
[2018-10-23] MEDS: RIFAXIMIN 550 MG TAB PO ×2 (08:17→20:19)
[2018-10-23] MEDS: CITRIC ACID/NA CITRATE 30 ML CUP PO ×3 (08:35→21:05)
[2018-10-23] MEDS: HEPARIN 5,000 UNIT/1 ML VIAL SC ×2 (08:40→20:20)
[2018-10-23 12:45] LABS: ADD UMIC YES; UR ASCORBIC ACID NEGATIVE (NEGATIVE); UR BACTERIA MODERATE /HPF (NONE SEEN); UR BILIRUBIN (Dip) NEGATIVE (NEGATIVE); UR BLOOD (Dip) 2+ mg/dL (NEGATIVE); UR BUDDING YEAST MANY /HPF (NONE SEEN); UR CLARITY TURBID (CLEAR); UR COLOR YELLOW (YELLOW); UR GLUCOSE (Dip) NEGATIVE (NEGATIVE); UR HYALINE CAST FEW /HPF (NONE SEEN); UR KETONES (Dip) NEGATIVE (NEGATIVE); UR LEUKOCYTE ESTERASE (Dip) 3+ Leu/ul (NEGATIVE); UR MUCUS FEW /HPF (NONE SEEN); UR NITRITE (Dip) NEGATIVE (NEGATIVE); UR RBC 99 /HPF (0-5); UR RENAL EPITHELIAL CELL FEW /HPF (NONE SEEN); UR SPECIFIC GRAVITY (Dip) 1.015 (1.003-1.030); UR SQUAMOUS EPITHELIAL CELL FEW /HPF (FEW); UR TOTAL PROTEIN (Dip) 2+ mg/dl (NEGATIVE); UR UROBILINOGEN (Dip) NEGATIVE (NEGATIVE); UR WBC > 182 /HPF (0-5)
[2018-10-23 12:46] LABS: CREATININE,URINE RANDOM 91.21 mg/dl (20-320)
[2018-10-23 12:50] LABS: SODIUM,URINE RANDOM < 13 mmol/L (30-90)
[2018-10-23 17:01] LABS: CREATININE, RANDOM URINE 128 mg/dL (20-275); MICROALBUMIN 74.9 mg/dL; MICROALBUMIN/CREATININE RATIO 585 (<30)
[2018-10-23] MEDS: NORepinephrine 8MG/250 ML (PMX 250 ML IV (21:08)
[2018-10-24] MEDS: SOD CHLORIDE 0.45% 1,000 ML IV ×2 (03:48→23:23)
[2018-10-24 04:53] LABS: ADD MAN DIFF? NO
[2018-10-24 04:57] LABS: WHITE BLOOD COUNT 5.1 10^3/ul (4.8-10.8)
[2018-10-24 04:57] LABS: ABNORMAL IP MESSAGE 1; BASOPHILS % 0.8 % (0.0-2.0); EOSINOPHILS # 0.3 10^3/ul (0.0-0.5); EOSINOPHILS % 4.9 % (0.0-7.0); HEMATOCRIT 19.7 % (37.0-47.0); LYMPHOCYTES # 0.9 10^3/ul (0.8-2.9); LYMPHOCYTES % 18.5 % (15.0-51.0); MEAN CORPUSCULAR HEMOGLOBIN 30.7 pg (29.0-33.0); MEAN CORPUSCULAR HGB CONC 31.5 g/dl (32.0-37.0); MEAN CORPUSCULAR VOLUME 97.5 fl (82.0-101.0); MEAN PLATELET VOLUME 10.9 fl (7.4-10.4); MONOCYTE # 0.5 10^3/ul (0.3-0.9); MONOCYTES % 8.9 % (0.0-11.0); NEUTROPHIL # 3.4 10^3/ul (1.6-7.5); NEUTROPHILS % 66.7 % (39.0-77.0); PLATELET COUNT 76 10^3/UL (140-415); RED BLOOD COUNT 2.02 10^6/ul (4.20-5.40); RED CELL DISTRIBUTION WIDTH 17.3 % (11.5-14.5)
[2018-10-24] MEDS: CITRIC ACID/NA CITRATE 30 ML CUP PO ×3 (05:06→21:02)
[2018-10-24] MEDS: PIPER-TAZO 2.25 GM (PMX) 50 ML IVPB ×3 (05:06→21:02)
[2018-10-24] MEDS: MIDODRINE 5 MG TAB PO ×3 (05:07→21:02)
[2018-10-24 05:12] LABS: HEMOGLOBIN 6.2 g/dl (12.0-16.0); POSITIVE DIFF @See below
[2018-10-24 05:23] LABS: ALANINE AMINOTRANSFERASE 21 IU/L (13-69); ALBUMIN 3.4 g/dl (3.3-4.9); ALBUMIN/GLOBULIN RATIO 1.36; ALKALINE PHOSPHATASE 69 IU/L (42-121); ANION GAP 19 (5-13); ASPARTATE AMINO TRANSFERASE 28 IU/L (15-46); BILIRUBIN,INDIRECT 1.1 mg/dl (0-1.1); BILIRUBIN,TOTAL 1.1 mg/dl (0.2-1.3); BLOOD UREA NITROGEN 63 mg/dl (7-20); CALCIUM 8.8 mg/dl (8.4-10.2); CARBON DIOXIDE 10 mmol/L (21-31); CHLORIDE 115 mmol/L (97-110); CREATININE 3.36 mg/dl (0.44-1.00); GLUCOSE 92 mg/dl (70-220); POTASSIUM 3.6 mmol/L (3.5-5.1); SODIUM 144 mmol/L (135-144); TOTAL PROTEIN 5.9 g/dl (6.1-8.1)
[2018-10-24 05:24] LABS: PHOSPHORUS 4.9 mg/dl (2.5-4.9)
[2018-10-24 05:24] LABS: MAGNESIUM 1.6 mg/dl (1.7-2.5)
[2018-10-24] MEDS: SEVELAMER CARBONATE 800 MG TABLET PO ×3 (07:48→17:39)
[2018-10-24 08:20] LABS: ADD MAN DIFF? NO
[2018-10-24 08:23] LABS: ABNORMAL IP MESSAGE 1; BASOPHILS % 0.4 % (0.0-2.0); EOSINOPHILS # 0.2 10^3/ul (0.0-0.5); EOSINOPHILS % 4.5 % (0.0-7.0); HEMATOCRIT 19.7 % (37.0-47.0); LYMPHOCYTES # 0.8 10^3/ul (0.8-2.9); LYMPHOCYTES % 16.8 % (15.0-51.0); MEAN CORPUSCULAR HEMOGLOBIN 32.2 pg (29.0-33.0); MEAN CORPUSCULAR HGB CONC 33.5 g/dl (32.0-37.0); MEAN CORPUSCULAR VOLUME 96.1 fl (82.0-101.0); MEAN PLATELET VOLUME 11.2 fl (7.4-10.4); MONOCYTE # 0.5 10^3/ul (0.3-0.9); MONOCYTES % 10.1 % (0.0-11.0); NEUTROPHIL # 3.3 10^3/ul (1.6-7.5); NEUTROPHILS % 67.6 % (39.0-77.0); PLATELET COUNT 74 10^3/UL (140-415); RED BLOOD COUNT 2.05 10^6/ul (4.20-5.40); RED CELL DISTRIBUTION WIDTH 17.2 % (11.5-14.5)
[2018-10-24 08:23] LABS: WHITE BLOOD COUNT 4.9 10^3/ul (4.8-10.8)
[2018-10-24 08:42] LABS: HEMOGLOBIN 6.6 g/dl (12.0-16.0); POSITIVE DIFF @See below
[2018-10-24 08:49] LABS: ANION GAP 17 (5-13); BLOOD UREA NITROGEN 61 mg/dl (7-20); CALCIUM 8.7 mg/dl (8.4-10.2); CARBON DIOXIDE 11 mmol/L (21-31); CHLORIDE 115 mmol/L (97-110); CREATININE 3.28 mg/dl (0.44-1.00); GLUCOSE 93 mg/dl (70-220); POTASSIUM 3.5 mmol/L (3.5-5.1); SODIUM 143 mmol/L (135-144)
[2018-10-24] MEDS: RIFAXIMIN 550 MG TAB PO ×2 (08:52→21:02)
[2018-10-24] MEDS: ALBUMIN HUMAN 25% 100 ML IV ×4 (08:52→23:24)
[2018-10-24] MEDS: HEPARIN 5,000 UNIT/1 ML VIAL SC ×2 (08:59→21:11)
[2018-10-24] MEDS: LACTULOSE 30ML CUP PO ×2 (09:00→21:02)
[2018-10-24 09:57] LABS: ANISOCYTOSIS 2+ (0-0); BAND NEUTROPHILS % (M) 2 % (0-4); BURR CELLS 2+ (0-0); EOSINOPHILS % (M) 7 % (0-7); LYMPHOCYTES #M 0.7 10^3/ul (0.8-2.9); LYMPHOCYTES % (M) 15 % (15-51); MONOCYTE #M 0.2 10^3/ul (0.3-0.9); MONOCYTES % (M) 6 % (0-11); PLATELET ESTIMATE DECREASED; POIKILOCYTOSIS 2+ (0-0); POLYCHROMASIA 3+ (0-0); SCHISTOCYTES 1+ (0-0); SEG NEUT #M 3.4 10^3/ul (1.6-7.5); SEGMENTED NEUTROPHILS (M) % 70 % (39-77); SMUDGE%M 5 % (0-0)
[2018-10-24] MEDS: SOD CHLORIDE 0.9% 250 ML IV* (10:45)
[2018-10-24 16:17] LABS: CREATININE, RANDOM URINE 84 mg/dL (20-275); MICROALBUMIN/CREATININE RATIO 333 (<30)
[2018-10-25 05:14] LABS: ADD MAN DIFF? NO
[2018-10-25 05:20] LABS: WHITE BLOOD COUNT 4.6 10^3/ul (4.8-10.8)
[2018-10-25 05:20] LABS: ABNORMAL IP MESSAGE 1; BASOPHILS % 0.6 % (0.0-2.0); EOSINOPHILS # 0.3 10^3/ul (0.0-0.5); EOSINOPHILS % 5.6 % (0.0-7.0); HEMATOCRIT 21.3 % (37.0-47.0); LYMPHOCYTES # 0.9 10^3/ul (0.8-2.9); MEAN CORPUSCULAR HEMOGLOBIN 30.2 pg (29.0-33.0); MEAN CORPUSCULAR HGB CONC 31.9 g/dl (32.0-37.0); MEAN CORPUSCULAR VOLUME 94.7 fl (82.0-101.0); MEAN PLATELET VOLUME 11.3 fl (7.4-10.4); MONOCYTE # 0.5 10^3/ul (0.3-0.9); NEUTROPHIL # 2.9 10^3/ul (1.6-7.5); NEUTROPHILS % 62.4 % (39.0-77.0); PLATELET COUNT 62 10^3/UL (140-415); RED BLOOD COUNT 2.25 10^6/ul (4.20-5.40)
[2018-10-25] MEDS: CITRIC ACID/NA CITRATE 30 ML CUP PO ×3 (05:25→21:22)
[2018-10-25] MEDS: PIPER-TAZO 2.25 GM (PMX) 50 ML IVPB ×2 (05:25→14:16)
[2018-10-25] MEDS: MIDODRINE 5 MG TAB PO ×3 (05:25→21:22)
[2018-10-25 05:30] LABS: HEMOGLOBIN 6.8 g/dl (12.0-16.0); POSITIVE DIFF @See below
[2018-10-25 05:35] LABS: ANION GAP 14 (5-13); BLOOD UREA NITROGEN 56 mg/dl (7-20); CALCIUM 8.7 mg/dl (8.4-10.2); CARBON DIOXIDE 12 mmol/L (21-31); CHLORIDE 115 mmol/L (97-110); CREATININE 3.07 mg/dl (0.44-1.00); GLUCOSE 105 mg/dl (70-220); MAGNESIUM 1.6 mg/dl (1.7-2.5); PHOSPHORUS 4.2 mg/dl (2.5-4.9); POTASSIUM 3.3 mmol/L (3.5-5.1); SODIUM 141 mmol/L (135-144)
[2018-10-25 05:45] LABS: ALANINE AMINOTRANSFERASE 19 IU/L (13-69); ALBUMIN 3.6 g/dl (3.3-4.9); ALBUMIN/GLOBULIN RATIO 1.71; ALKALINE PHOSPHATASE 55 IU/L (42-121); ANION GAP 16 (5-13); ASPARTATE AMINO TRANSFERASE 19 IU/L (15-46); BILIRUBIN,INDIRECT 1.4 mg/dl (0-1.1); BILIRUBIN,TOTAL 1.4 mg/dl (0.2-1.3); BLOOD UREA NITROGEN 55 mg/dl (7-20); CALCIUM 8.7 mg/dl (8.4-10.2); CARBON DIOXIDE 12 mmol/L (21-31); CHLORIDE 115 mmol/L (97-110); CREATININE 3.09 mg/dl (0.44-1.00); GLUCOSE 107 mg/dl (70-220); POTASSIUM 3.2 mmol/L (3.5-5.1); SODIUM 143 mmol/L (135-144); TOTAL PROTEIN 5.7 g/dl (6.1-8.1)
[2018-10-25] MEDS: morphine 2 MG INJ IV (06:03)
[2018-10-25] MEDS: LACTULOSE 30ML CUP PO ×2 (08:16→21:22)
[2018-10-25] MEDS: SEVELAMER CARBONATE 800 MG TABLET PO ×3 (08:17→17:19)
[2018-10-25] MEDS: RIFAXIMIN 550 MG TAB PO ×2 (08:17→21:22)
[2018-10-25] MEDS: POTASSIUM CHLORIDE (SR) 20 MEQ TAB PO (08:17)
[2018-10-25] MEDS: MAGNESIUM SULFATE 2 GM/50 ML 50 ML IVPB (08:18)
[2018-10-25] MEDS: ALBUMIN HUMAN 25% 100 ML IV ×3 (08:18→23:58)
[2018-10-25] MEDS: HEPARIN 5,000 UNIT/1 ML VIAL SC ×2 (08:19→21:31)
[2018-10-25 09:19] LABS: IMMEDIATE SPIN CROSSMATCH 1 2
[2018-10-25 14:05] LABS: INR 1.78; PROTIME 20.8 Sec (11.9-14.9); PT RATIO 1.6
[2018-10-25] MEDS: NORepinephrine 8MG/250 ML (PMX 250 ML IV (14:17)
[2018-10-25] MEDS: LIDOCAINE 1% (MPF) 5 ML VIAL (15:24)
[2018-10-25 15:59] LABS: FLD PMN% 11.3 %; FLD RBC 0 /uL; FLD WBC 44 /cmm
[2018-10-25 16:30] LABS: FLD TYPE PARACENTHESIS
[2018-10-25 16:30] LABS: FLD CLARITY CLEAR; FLD COLOR YELLOW
[2018-10-25 16:31] LABS: FLD MN% 88.7 %
[2018-10-25] MEDS: SOD CHLORIDE 0.45% 1,000 ML IV (19:19)
[2018-10-26 05:15] LABS: ADD MAN DIFF? NO
[2018-10-26 05:20] LABS: ABNORMAL IP MESSAGE 1; BASOPHILS % 0.6 % (0.0-2.0); EOSINOPHILS # 0.2 10^3/ul (0.0-0.5); EOSINOPHILS % 4.4 % (0.0-7.0); HEMATOCRIT 22.8 % (37.0-47.0); HEMOGLOBIN 7.4 g/dl (12.0-16.0); LYMPHOCYTES # 0.8 10^3/ul (0.8-2.9); LYMPHOCYTES % 15.9 % (15.0-51.0); MEAN CORPUSCULAR HEMOGLOBIN 29.7 pg (29.0-33.0); MEAN CORPUSCULAR HGB CONC 32.5 g/dl (32.0-37.0); MEAN CORPUSCULAR VOLUME 91.6 fl (82.0-101.0); MONOCYTE # 0.6 10^3/ul (0.3-0.9); MONOCYTES % 11.7 % (0.0-11.0); NEUTROPHIL # 3.3 10^3/ul (1.6-7.5); NEUTROPHILS % 66.8 % (39.0-77.0); PLATELET COUNT 53 10^3/UL (140-415); RED BLOOD COUNT 2.49 10^6/ul (4.20-5.40); RED CELL DISTRIBUTION WIDTH 18.6 % (11.5-14.5)
[2018-10-26 05:25] LABS: POSITIVE DIFF @See below
[2018-10-26 05:46] LABS: ANION GAP 17 (5-13); BLOOD UREA NITROGEN 52 mg/dl (7-20); CALCIUM 8.9 mg/dl (8.4-10.2); CARBON DIOXIDE 14 mmol/L (21-31); CHLORIDE 112 mmol/L (97-110); CREATININE 2.81 mg/dl (0.44-1.00); GLUCOSE 96 mg/dl (70-220); POTASSIUM 3.6 mmol/L (3.5-5.1); SODIUM 143 mmol/L (135-144)
[2018-10-26 05:50] LABS: PHOSPHORUS 3.6 mg/dl (2.5-4.9)
[2018-10-26] MEDS: MIDODRINE 5 MG TAB PO ×3 (05:58→21:19)
[2018-10-26] MEDS: CITRIC ACID/NA CITRATE 30 ML CUP PO ×3 (05:58→20:58)
[2018-10-26] MEDS: SEVELAMER CARBONATE 800 MG TABLET PO ×3 (08:41→17:34)
[2018-10-26] MEDS: LACTULOSE 30ML CUP PO ×2 (08:41→20:58)
[2018-10-26] MEDS: RIFAXIMIN 550 MG TAB PO ×2 (08:41→21:18)
[2018-10-26] MEDS: ALBUMIN HUMAN 25% 100 ML IV (08:42)
[2018-10-26] MEDS: HEPARIN 5,000 UNIT/1 ML VIAL SC (09:00)
[2018-10-26] MEDS: SOD CHLORIDE 0.45% 1,000 ML IV (16:13)
[2018-10-26] MEDS: CEPASTAT LOZENGE MT (17:34)
[2018-10-27] MEDS: NORepinephrine 8MG/250 ML (PMX 250 ML IV (03:43)
[2018-10-27 05:11] LABS: ADD MAN DIFF? NO
[2018-10-27 05:12] LABS: ABNORMAL IP MESSAGE 1; BASOPHILS % 0.4 % (0.0-2.0); EOSINOPHILS # 0.4 10^3/ul (0.0-0.5); EOSINOPHILS % 5.7 % (0.0-7.0); HEMATOCRIT 24.6 % (37.0-47.0); HEMOGLOBIN 8.2 g/dl (12.0-16.0); LYMPHOCYTES # 0.9 10^3/ul (0.8-2.9); LYMPHOCYTES % 12.3 % (15.0-51.0); MEAN CORPUSCULAR HEMOGLOBIN 30.9 pg (29.0-33.0); MEAN CORPUSCULAR HGB CONC 33.3 g/dl (32.0-37.0); MEAN CORPUSCULAR VOLUME 92.8 fl (82.0-101.0); MEAN PLATELET VOLUME 10.9 fl (7.4-10.4); MONOCYTE # 0.9 10^3/ul (0.3-0.9); MONOCYTES % 12.4 % (0.0-11.0); NEUTROPHIL # 4.8 10^3/ul (1.6-7.5); NEUTROPHILS % 68.9 % (39.0-77.0); PLATELET COUNT 67 10^3/UL (140-415); RED BLOOD COUNT 2.65 10^6/ul (4.20-5.40); RED CELL DISTRIBUTION WIDTH 18.9 % (11.5-14.5)
[2018-10-27] MEDS: CITRIC ACID/NA CITRATE 30 ML CUP PO ×3 (05:42→21:23)
[2018-10-27] MEDS: MIDODRINE 5 MG TAB PO ×3 (05:42→21:23)
[2018-10-27 05:53] LABS: ANION GAP 15 (5-13); BLOOD UREA NITROGEN 51 mg/dl (7-20); CALCIUM 8.8 mg/dl (8.4-10.2); CARBON DIOXIDE 15 mmol/L (21-31); CHLORIDE 111 mmol/L (97-110); CREATININE 2.45 mg/dl (0.44-1.00); GLUCOSE 88 mg/dl (70-220); MAGNESIUM 1.9 mg/dl (1.7-2.5); POTASSIUM 3.5 mmol/L (3.5-5.1); SODIUM 141 mmol/L (135-144)
[2018-10-27 06:01] LABS: POSITIVE DIFF @See below
[2018-10-27] MEDS: RIFAXIMIN 550 MG TAB PO ×2 (08:57→21:23)
[2018-10-27] MEDS: LACTULOSE 30ML CUP PO ×2 (08:58→21:23)
[2018-10-27] MEDS: SEVELAMER CARBONATE 800 MG TABLET PO ×3 (08:58→18:33)
[2018-10-27] MEDS: SOD CHLORIDE 0.45% 1,000 ML IV (10:12)
[2018-10-27] MEDS: LIDOCAINE 2% VISC 15 ML CUP PO ×2 (18:33→21:30)
[2018-10-27] MEDS: BALSAM PERU/CASTOR OIL 60 GM TUBE TOP (21:22)
[2018-10-28 04:45] LABS: ADD MAN DIFF? NO
[2018-10-28 04:47] LABS: WHITE BLOOD COUNT 5.8 10^3/ul (4.8-10.8)
[2018-10-28 04:47] LABS: ABNORMAL IP MESSAGE 1; BASOPHILS % 0.2 % (0.0-2.0); EOSINOPHILS # 0.3 10^3/ul (0.0-0.5); HEMATOCRIT 23.6 % (37.0-47.0); HEMOGLOBIN 7.8 g/dl (12.0-16.0); LYMPHOCYTES # 0.7 10^3/ul (0.8-2.9); LYMPHOCYTES % 12.2 % (15.0-51.0); MEAN CORPUSCULAR HEMOGLOBIN 30.8 pg (29.0-33.0); MEAN CORPUSCULAR HGB CONC 33.1 g/dl (32.0-37.0); MEAN CORPUSCULAR VOLUME 93.3 fl (82.0-101.0); MEAN PLATELET VOLUME 10.4 fl (7.4-10.4); MONOCYTE # 0.6 10^3/ul (0.3-0.9); MONOCYTES % 10.3 % (0.0-11.0); NEUTROPHIL # 4.2 10^3/ul (1.6-7.5); NEUTROPHILS % 71.8 % (39.0-77.0); PLATELET COUNT 51 10^3/UL (140-415); RED BLOOD COUNT 2.53 10^6/ul (4.20-5.40); RED CELL DISTRIBUTION WIDTH 18.7 % (11.5-14.5)
[2018-10-28 04:54] LABS: POSITIVE DIFF @See below
[2018-10-28] MEDS: MIDODRINE 5 MG TAB PO ×3 (05:05→22:18)
[2018-10-28] MEDS: LIDOCAINE 2% VISC 15 ML CUP PO ×3 (05:06→15:25)
[2018-10-28] MEDS: CITRIC ACID/NA CITRATE 30 ML CUP PO ×3 (05:06→22:17)
[2018-10-28 05:14] LABS: ANION GAP 12 (5-13); BLOOD UREA NITROGEN 49 mg/dl (7-20); CALCIUM 8.6 mg/dl (8.4-10.2); CARBON DIOXIDE 16 mmol/L (21-31); CHLORIDE 111 mmol/L (97-110); CREATININE 2.24 mg/dl (0.44-1.00); GLUCOSE 90 mg/dl (70-220); MAGNESIUM 1.8 mg/dl (1.7-2.5); PHOSPHORUS 3.1 mg/dl (2.5-4.9); POTASSIUM 3.7 mmol/L (3.5-5.1); SODIUM 139 mmol/L (135-144)
[2018-10-28] MEDS: SEVELAMER CARBONATE 800 MG TABLET PO ×4 (07:55→17:49)
[2018-10-28] MEDS: SOD CHLORIDE 0.45% 1,000 ML IV (08:00)
[2018-10-28] MEDS: ASCORBIC ACID 250 MG TAB PO ×2 (09:00→12:25)
[2018-10-28] MEDS: LACTULOSE 30ML CUP PO ×2 (09:17→20:18)
[2018-10-28] MEDS: MULTIVITAMINS THERAPEUTIC TAB PO (09:18)
[2018-10-28] MEDS: RIFAXIMIN 550 MG TAB PO ×2 (09:18→20:19)
[2018-10-28] MEDS: BALSAM PERU/CASTOR OIL 60 GM TUBE TOP ×2 (09:23→22:37)
[2018-10-29] MEDS: CITRIC ACID/NA CITRATE 30 ML CUP PO ×3 (05:29→22:35)
[2018-10-29] MEDS: LIDOCAINE 2% VISC 15 ML CUP PO ×3 (05:29→22:35)
[2018-10-29] MEDS: SOD CHLORIDE 0.45% 1,000 ML IV (05:29)
[2018-10-29] MEDS: MIDODRINE 5 MG TAB PO ×3 (05:37→22:37)
[2018-10-29 07:22] LABS: ADD MAN DIFF? NO
[2018-10-29 07:25] LABS: ABNORMAL IP MESSAGE 1; BASOPHILS % 0.5 % (0.0-2.0); EOSINOPHILS # 0.3 10^3/ul (0.0-0.5); HEMATOCRIT 26.6 % (37.0-47.0); HEMOGLOBIN 8.6 g/dl (12.0-16.0); LYMPHOCYTES # 0.8 10^3/ul (0.8-2.9); LYMPHOCYTES % 11.5 % (15.0-51.0); MEAN CORPUSCULAR HEMOGLOBIN 30.5 pg (29.0-33.0); MEAN CORPUSCULAR HGB CONC 32.3 g/dl (32.0-37.0); MEAN CORPUSCULAR VOLUME 94.3 fl (82.0-101.0); MEAN PLATELET VOLUME 10.7 fl (7.4-10.4); MONOCYTE # 0.8 10^3/ul (0.3-0.9); MONOCYTES % 12.7 % (0.0-11.0); NEUTROPHIL # 4.6 10^3/ul (1.6-7.5); NEUTROPHILS % 69.7 % (39.0-77.0); PLATELET COUNT 64 10^3/UL (140-415); RED BLOOD COUNT 2.82 10^6/ul (4.20-5.40); RED CELL DISTRIBUTION WIDTH 18.8 % (11.5-14.5)
[2018-10-29 07:25] LABS: WHITE BLOOD COUNT 6.6 10^3/ul (4.8-10.8)
[2018-10-29 07:28] LABS: ADD UMIC YES; UR ASCORBIC ACID 20 mg/dL (NEGATIVE); UR BACTERIA FEW /HPF (NONE SEEN); UR BILIRUBIN (Dip) NEGATIVE (NEGATIVE); UR BLOOD (Dip) 1+ mg/dL (NEGATIVE); UR CLARITY CLOUDY (CLEAR); UR COLOR YELLOW (YELLOW); UR GLUCOSE (Dip) NEGATIVE (NEGATIVE); UR KETONES (Dip) NEGATIVE (NEGATIVE); UR LEUKOCYTE ESTERASE (Dip) 2+ Leu/ul (NEGATIVE); UR NITRITE (Dip) NEGATIVE (NEGATIVE); UR RBC 5 /HPF (0-5); UR RENAL EPITHELIAL CELL FEW /HPF (NONE SEEN); UR SPECIFIC GRAVITY (Dip) 1.013 (1.003-1.030); UR SQUAMOUS EPITHELIAL CELL MODERATE /HPF (FEW); UR TOTAL PROTEIN (Dip) NEGATIVE (NEGATIVE); UR UROBILINOGEN (Dip) NEGATIVE (NEGATIVE); UR WBC 65 /HPF (0-5)
[2018-10-29 07:34] LABS: POSITIVE DIFF @See below
[2018-10-29 07:47] LABS: ANION GAP 9 (5-13); BLOOD UREA NITROGEN 49 mg/dl (7-20); CALCIUM 8.9 mg/dl (8.4-10.2); CARBON DIOXIDE 17 mmol/L (21-31); CHLORIDE 113 mmol/L (97-110); CREATININE 2.07 mg/dl (0.44-1.00); GLUCOSE 99 mg/dl (70-220); MAGNESIUM 1.9 mg/dl (1.7-2.5); SODIUM 139 mmol/L (135-144)
[2018-10-29] MEDS: LACTULOSE 30ML CUP PO ×3 (09:36→21:00)
[2018-10-29] MEDS: RIFAXIMIN 550 MG TAB PO ×2 (09:36→22:35)
[2018-10-29] MEDS: MULTIVITAMINS THERAPEUTIC TAB PO (09:36)
[2018-10-29] MEDS: SEVELAMER CARBONATE 800 MG TABLET PO ×3 (09:36→17:26)
[2018-10-29] MEDS: BALSAM PERU/CASTOR OIL 60 GM TUBE TOP ×2 (09:37→22:42)
[2018-10-29] MEDS: TAMSULOSIN (SR) 0.4 MG CAP PO (22:34)
[2018-10-30] MEDS: MIDODRINE 5 MG TAB PO ×4 (06:00→21:10)
[2018-10-30 06:12] LABS: ADD MAN DIFF? NO
[2018-10-30] MEDS: CITRIC ACID/NA CITRATE 30 ML CUP PO ×3 (06:26→21:07)
[2018-10-30] MEDS: LIDOCAINE 2% VISC 15 ML CUP PO ×3 (06:26→21:07)
[2018-10-30 06:36] LABS: WHITE BLOOD COUNT 3.8 10^3/ul (4.8-10.8)
[2018-10-30 06:36] LABS: ABNORMAL IP MESSAGE 1; BASOPHILS % 0.3 % (0.0-2.0); EOSINOPHILS # 0.1 10^3/ul (0.0-0.5); EOSINOPHILS % 3.7 % (0.0-7.0); HEMATOCRIT 23.3 % (37.0-47.0); HEMOGLOBIN 7.6 g/dl (12.0-16.0); LYMPHOCYTES # 0.6 10^3/ul (0.8-2.9); LYMPHOCYTES % 16.6 % (15.0-51.0); MEAN CORPUSCULAR HEMOGLOBIN 30.6 pg (29.0-33.0); MEAN CORPUSCULAR HGB CONC 32.6 g/dl (32.0-37.0); MEAN PLATELET VOLUME 11.2 fl (7.4-10.4); MONOCYTE # 0.4 10^3/ul (0.3-0.9); MONOCYTES % 11.3 % (0.0-11.0); NEUTROPHIL # 2.6 10^3/ul (1.6-7.5); NEUTROPHILS % 67.6 % (39.0-77.0); RED BLOOD COUNT 2.48 10^6/ul (4.20-5.40); RED CELL DISTRIBUTION WIDTH 18.7 % (11.5-14.5)
[2018-10-30 06:40] LABS: ANION GAP 11 (5-13); BLOOD UREA NITROGEN 47 mg/dl (7-20); CALCIUM 8.5 mg/dl (8.4-10.2); CARBON DIOXIDE 17 mmol/L (21-31); CHLORIDE 112 mmol/L (97-110); CREATININE 1.87 mg/dl (0.44-1.00); GLUCOSE 94 mg/dl (70-220); MAGNESIUM 1.9 mg/dl (1.7-2.5); PHOSPHORUS 2.9 mg/dl (2.5-4.9); POTASSIUM 3.5 mmol/L (3.5-5.1); SODIUM 140 mmol/L (135-144)
[2018-10-30 06:42] LABS: PLATELET COUNT 51 10^3/UL (140-415); POSITIVE DIFF @See below
[2018-10-30] MEDS: BALSAM PERU/CASTOR OIL 60 GM TUBE TOP ×2 (09:00→21:08)
[2018-10-30] MEDS: LACTULOSE 30ML CUP PO ×2 (09:31→21:07)
[2018-10-30] MEDS: ASCORBIC ACID 250 MG TAB PO (09:31)
[2018-10-30] MEDS: SEVELAMER CARBONATE 800 MG TABLET PO ×3 (09:31→17:35)
[2018-10-30] MEDS: MULTIVITAMINS THERAPEUTIC TAB PO (09:31)
[2018-10-30] MEDS: RIFAXIMIN 550 MG TAB PO ×2 (09:31→21:07)
[2018-10-30] MEDS: TAMSULOSIN (SR) 0.4 MG CAP PO (21:07)
[2018-10-31 05:49] LABS: ADD MAN DIFF? NO
[2018-10-31] MEDS: LIDOCAINE 2% VISC 15 ML CUP PO ×3 (05:53→21:21)
[2018-10-31] MEDS: CITRIC ACID/NA CITRATE 30 ML CUP PO ×3 (05:53→21:21)
[2018-10-31] MEDS: MIDODRINE 5 MG TAB PO ×3 (05:54→21:21)
[2018-10-31 05:58] LABS: WHITE BLOOD COUNT 3.9 10^3/ul (4.8-10.8)
[2018-10-31 05:58] LABS: ABNORMAL IP MESSAGE 1; BASOPHILS % 0.8 % (0.0-2.0); EOSINOPHILS # 0.2 10^3/ul (0.0-0.5); EOSINOPHILS % 3.8 % (0.0-7.0); HEMATOCRIT 23.5 % (37.0-47.0); HEMOGLOBIN 7.8 g/dl (12.0-16.0); LYMPHOCYTES # 0.6 10^3/ul (0.8-2.9); LYMPHOCYTES % 14.3 % (15.0-51.0); MEAN CORPUSCULAR HEMOGLOBIN 31.2 pg (29.0-33.0); MEAN CORPUSCULAR HGB CONC 33.2 g/dl (32.0-37.0); MEAN PLATELET VOLUME 11.5 fl (7.4-10.4); MONOCYTE # 0.5 10^3/ul (0.3-0.9); MONOCYTES % 12.3 % (0.0-11.0); NEUTROPHIL # 2.7 10^3/ul (1.6-7.5); NEUTROPHILS % 68.3 % (39.0-77.0); PLATELET COUNT 53 10^3/UL (140-415); RED CELL DISTRIBUTION WIDTH 18.8 % (11.5-14.5)
[2018-10-31 06:14] LABS: POSITIVE DIFF @See below
[2018-10-31 06:15] LABS: ANION GAP 11 (5-13); BLOOD UREA NITROGEN 45 mg/dl (7-20); CALCIUM 8.7 mg/dl (8.4-10.2); CARBON DIOXIDE 18 mmol/L (21-31); CHLORIDE 112 mmol/L (97-110); CREATININE 1.78 mg/dl (0.44-1.00); GLUCOSE 107 mg/dl (70-220); MAGNESIUM 1.9 mg/dl (1.7-2.5); PHOSPHORUS 2.9 mg/dl (2.5-4.9); POTASSIUM 3.8 mmol/L (3.5-5.1); SODIUM 141 mmol/L (135-144)
[2018-10-31] MEDS: RIFAXIMIN 550 MG TAB PO ×2 (10:52→21:20)
[2018-10-31] MEDS: MULTIVITAMINS THERAPEUTIC TAB PO (10:52)
[2018-10-31] MEDS: LACTULOSE 30ML CUP PO ×2 (10:52→21:20)
[2018-10-31] MEDS: ASCORBIC ACID 250 MG TAB PO (10:52)
[2018-10-31] MEDS: BALSAM PERU/CASTOR OIL 60 GM TUBE TOP ×2 (10:53→21:00)
[2018-10-31] MEDS: TAMSULOSIN (SR) 0.4 MG CAP PO (21:20)
== END 2018-10-31 21:33 | DRG 871 ==
LOC: TEL 10-28 05:30 → E/R 11:48 → TEL 10-28 10:27 → PP2 10-28 17:13 → ICU 14:33
PROVIDERS: Internal Medicine
PROC: 0W9G3ZX Drainage of Peritoneal Cavity, Percutaneous Approach, Diagnostic (ICD-10-PCS; 2018-10-21)
PROC: 0W9G3ZX Drainage of Peritoneal Cavity, Percutaneous Approach, Diagnostic (ICD-10-PCS; principal; 2018-10-25)
DX: A41.9 Sepsis, unspecified organism (principal); K72.00 Acute and subacute hepatic failure without coma; K65.2 Spontaneous bacterial peritonitis; R65.21 Severe sepsis with septic shock; N17.0 Acute kidney failure with tubular necrosis; R18.8 Other ascites; E87.2 Acidosis; E87.1 Hypo-osmolality and hyponatremia; N39.0 Urinary tract infection, site not specified; K74.69 Other cirrhosis of liver; D63.8 Anemia in other chronic diseases classified elsewhere; E87.5 Hyperkalemia; N18.9 Chronic kidney disease, unspecified; I12.9 Hypertensive chronic kidney disease with stage 1 through stage 4 chronic kidney disease, or unspecified chronic kidney disease; E83.9 Disorder of mineral metabolism, unspecified; R53.81 Other malaise
CPT/HCPCS: 36415; 36430; 36600; 70450; 71045; 76705; 76775; 76937; 80048; 80053; 80202; 81001; 81003; 82042; 82043; 82140; 82803; 82962; 83036; 83605; 83615; 83735; 84100; 84155; 84300; 84443; 84484; 85025; 85610; 85730; 86850; 86900; 86901; 86920; 87040; 87070; 87081; 87086; 87102; 87116; 89051; 93005; 96374; 96375; 96376; 97110; 97163; 99285-25

== ENCOUNTER 2019-01-09 12:59 | Inpatient (IN) | payer OTHER ==
[2019-01-09 14:32] LABS: ADD MAN DIFF? NO
[2019-01-09 14:40] LABS: WHITE BLOOD COUNT 9.7 10^3/ul (4.8-10.8)
[2019-01-09 14:40] LABS: BASOPHIL # 0.1 10^3/ul (0.0-0.1); BASOPHILS % 0.5 % (0.0-2.0); EOSINOPHILS # 0.2 10^3/ul (0.0-0.5); EOSINOPHILS % 2.1 % (0.0-7.0); HEMATOCRIT 26.5 % (37.0-47.0); HEMOGLOBIN 8.9 g/dl (12.0-16.0); LYMPHOCYTES # 1.2 10^3/ul (0.8-2.9); LYMPHOCYTES % 12.6 % (15.0-51.0); MEAN CORPUSCULAR HGB CONC 33.6 g/dl (32.0-37.0); MEAN CORPUSCULAR VOLUME 92.3 fl (82.0-101.0); MEAN PLATELET VOLUME 10.5 fl (7.4-10.4); MONOCYTES % 10.4 % (0.0-11.0); NEUTROPHIL # 7.1 10^3/ul (1.6-7.5); NEUTROPHILS % 73.4 % (39.0-77.0); PLATELET COUNT 122 10^3/UL (140-415); RED BLOOD COUNT 2.87 10^6/ul (4.20-5.40); RED CELL DISTRIBUTION WIDTH 14.3 % (11.5-14.5)
[2019-01-09] MEDS: ONDANSETRON 4 MG INJ IV (14:49)
[2019-01-09] MEDS: CEFTRIAXONE 1 GM/50 ML (PMX) 50 ML IVPB (14:50)
[2019-01-09] MEDS: IBUPROFEN 600 MG TAB PO (14:50)
[2019-01-09] MEDS: SOD CHLORIDE 0.9% 500 ML IV (14:50)
[2019-01-09 14:56] LABS: ALANINE AMINOTRANSFERASE 32 IU/L (13-69); ALBUMIN 2.7 g/dl (3.3-4.9); ALBUMIN/GLOBULIN RATIO 0.64; ALKALINE PHOSPHATASE 383 IU/L (42-121); ANION GAP 8 (5-13); ASPARTATE AMINO TRANSFERASE 47 IU/L (15-46); BILIRUBIN,INDIRECT 1.1 mg/dl (0-1.1); BILIRUBIN,TOTAL 1.1 mg/dl (0.2-1.3); BLOOD UREA NITROGEN 21 mg/dl (7-20); CALCIUM 7.9 mg/dl (8.4-10.2); CARBON DIOXIDE 21 mmol/L (21-31); CHLORIDE 102 mmol/L (97-110); CREATININE 1.31 mg/dl (0.44-1.00); GLUCOSE 153 mg/dl (70-220); LIPASE 94 U/L (23-300); SODIUM 131 mmol/L (135-144); TOTAL PROTEIN 6.9 g/dl (6.1-8.1)
[2019-01-09 14:59] LABS: INR 1.45; PROTIME 17.7 Sec (11.9-14.9); PT RATIO 1.4
[2019-01-09] MEDS: morphine 2 MG INJ IV (14:59)
[2019-01-09 15:00] LABS: PARTIAL THROMBOPLASTIN TIME 39.4 Sec (23.0-35.0)
[2019-01-09 15:09] LABS: TROPONIN-I < 0.012 ng/ml (0.000-0.120)
[2019-01-09 17:24] LABS: ADD UMIC YES; UR ASCORBIC ACID NEGATIVE (NEGATIVE); UR BILIRUBIN (Dip) NEGATIVE (NEGATIVE); UR BLOOD (Dip) 1+ mg/dL (NEGATIVE); UR CLARITY CLEAR (CLEAR); UR COLOR YELLOW (YELLOW); UR GLUCOSE (Dip) NEGATIVE (NEGATIVE); UR KETONES (Dip) NEGATIVE (NEGATIVE); UR LEUKOCYTE ESTERASE (Dip) NEGATIVE Leu/ul (NEGATIVE); UR NITRITE (Dip) NEGATIVE (NEGATIVE); UR RBC 0 /HPF (0-5); UR SPECIFIC GRAVITY (Dip) 1.006 (1.003-1.030); UR TOTAL PROTEIN (Dip) NEGATIVE (NEGATIVE); UR UROBILINOGEN (Dip) NEGATIVE (NEGATIVE); UR WBC 2 /HPF (0-5)
[2019-01-09] MEDS: LIDOCAINE 1% (MPF) 5 ML VIAL (18:14)
[2019-01-09] MEDS ORDERED: NACL 0.9% 3 ML SYG IV (18:30)
[2019-01-09] MEDS ORDERED: morphine 2 MG INJ IV (18:30)
[2019-01-09] MEDS ORDERED: ONDANSETRON 4 MG INJ IV (18:30)
[2019-01-09] MEDS: RIFAXIMIN 550 MG TAB PO (21:28)
[2019-01-09] MEDS: LACTULOSE 30ML CUP PO (21:28)
[2019-01-10] MEDS: ZOLPIDEM 5 MG TAB PO (03:08)
[2019-01-10] MEDS ORDERED: GLUCAGON 1 MG INJ IM (04:00)
[2019-01-10] MEDS ORDERED: GLUCOSE GEL 15 GRAM TUBE BUCCAL (04:00)
[2019-01-10] MEDS ORDERED: DEXTROSE 50% 50 ML SYRINGE IV ×2 (04:00)
[2019-01-10] MEDS ORDERED: GLUCOSE GEL 15 GRAM TUBE PO ×2 (04:00)
[2019-01-10] MEDS: PANTOPRAZOLE (EC) 40 MG TAB PO (05:40)
[2019-01-10] MEDS: SPIRONOLACTONE 50 MG TAB PO ×2 (05:40→17:15)
[2019-01-10] MEDS: FUROSEMIDE 20 MG TAB PO ×2 (05:41→17:15)
[2019-01-10] MEDS: INSULIN ASPART [NOVOLOG] 3 ML PEN SC ×4 (07:49→20:58)
[2019-01-10 08:17] LABS: ADD MAN DIFF? NO
[2019-01-10 08:24] LABS: BASOPHILS % 0.5 % (0.0-2.0); EOSINOPHILS # 0.4 10^3/ul (0.0-0.5); EOSINOPHILS % 6.5 % (0.0-7.0); HEMATOCRIT 24.6 % (37.0-47.0); HEMOGLOBIN 8.3 g/dl (12.0-16.0); LYMPHOCYTES # 1.1 10^3/ul (0.8-2.9); LYMPHOCYTES % 17.7 % (15.0-51.0); MEAN CORPUSCULAR HEMOGLOBIN 31.2 pg (29.0-33.0); MEAN CORPUSCULAR HGB CONC 33.7 g/dl (32.0-37.0); MEAN CORPUSCULAR VOLUME 92.5 fl (82.0-101.0); MONOCYTE # 0.6 10^3/ul (0.3-0.9); MONOCYTES % 9.7 % (0.0-11.0); NEUTROPHIL # 4.1 10^3/ul (1.6-7.5); NEUTROPHILS % 65.1 % (39.0-77.0); PLATELET COUNT 120 10^3/UL (140-415); RED BLOOD COUNT 2.66 10^6/ul (4.20-5.40); RED CELL DISTRIBUTION WIDTH 14.2 % (11.5-14.5)
[2019-01-10 08:24] LABS: WHITE BLOOD COUNT 6.3 10^3/ul (4.8-10.8)
[2019-01-10] MEDS: RIFAXIMIN 550 MG TAB PO ×2 (08:25→20:37)
[2019-01-10] MEDS: LACTULOSE 30ML CUP PO ×2 (08:25→20:36)
[2019-01-10 09:01] LABS: ANION GAP 7 (5-13); BLOOD UREA NITROGEN 20 mg/dl (7-20); CALCIUM 7.8 mg/dl (8.4-10.2); CARBON DIOXIDE 21 mmol/L (21-31); CHLORIDE 104 mmol/L (97-110); CREATININE 1.25 mg/dl (0.44-1.00); GLUCOSE 102 mg/dl (70-220); MAGNESIUM 1.7 mg/dl (1.7-2.5); PHOSPHORUS 3.6 mg/dl (2.5-4.9); SODIUM 132 mmol/L (135-144)
[2019-01-10] MEDS: CEFTRIAXONE 1 GM/50 ML (PMX) 50 ML IVPB (14:12)
[2019-01-10] MEDS: MAGNESIUM SULFATE 2 GM/50 ML 50 ML IVPB (16:56)
[2019-01-11] MEDS: ACCU-CHEK XX (02:49)
[2019-01-11] MEDS: PANTOPRAZOLE (EC) 40 MG TAB PO (05:45)
[2019-01-11] MEDS: SPIRONOLACTONE 50 MG TAB PO (05:45)
[2019-01-11] MEDS: FUROSEMIDE 20 MG TAB PO (05:49)
[2019-01-11] MEDS: INSULIN ASPART [NOVOLOG] 3 ML PEN SC ×2 (07:55→12:29)
[2019-01-11 08:06] LABS: ANION GAP 8 (5-13); BLOOD UREA NITROGEN 20 mg/dl (7-20); CALCIUM 7.8 mg/dl (8.4-10.2); CARBON DIOXIDE 20 mmol/L (21-31); CHLORIDE 105 mmol/L (97-110); CREATININE 1.18 mg/dl (0.44-1.00); GLUCOSE 114 mg/dl (70-220); MAGNESIUM 2.1 mg/dl (1.7-2.5); POTASSIUM 3.8 mmol/L (3.5-5.1); SODIUM 133 mmol/L (135-144)
[2019-01-11] MEDS: LACTULOSE 30ML CUP PO (08:57)
[2019-01-11] MEDS: RIFAXIMIN 550 MG TAB PO (08:57)
[2019-01-11] MEDS: LIDOCAINE 1% (MDV) 20 ML INJ (14:37)
== END 2019-01-11 17:00 | disposition home or self-care (01) | DRG 433 ==
LOC: TEL 17:31 → E/R 12:59
PROC: 0W9G3ZZ Drainage of Peritoneal Cavity, Percutaneous Approach (ICD-10-PCS; principal; 2019-01-09)
PROC: 0W9G3ZZ Drainage of Peritoneal Cavity, Percutaneous Approach (ICD-10-PCS; 2019-01-11)
DX: K74.69 Other cirrhosis of liver (principal); R18.8 Other ascites; N17.9 Acute kidney failure, unspecified; G93.40 Encephalopathy, unspecified; E11.9 Type 2 diabetes mellitus without complications; D63.8 Anemia in other chronic diseases classified elsewhere; R53.81 Other malaise
CPT/HCPCS: 36415; 71045; 80048; 80053; 81001; 82962; 83690; 83735; 84100; 84484; 85025; 85610; 85730; 87086; 93005; 96374; 96375; 99285-25; G0378

== ENCOUNTER 2019-02-23 18:23 | Inpatient (IN) | payer OTHER ==
[2019-02-23 19:30] LABS: ADD MAN DIFF? NO
[2019-02-23 19:33] LABS: WHITE BLOOD COUNT 14.9 10^3/ul (4.8-10.8)
[2019-02-23 19:34] LABS: BASOPHIL # 0.1 10^3/ul (0.0-0.1); BASOPHILS % 0.3 % (0.0-2.0); EOSINOPHILS % 0.1 % (0.0-7.0); HEMATOCRIT 25.6 % (37.0-47.0); HEMOGLOBIN 8.5 g/dl (12.0-16.0); LYMPHOCYTES # 1.2 10^3/ul (0.8-2.9); LYMPHOCYTES % 7.9 % (15.0-51.0); MEAN CORPUSCULAR HEMOGLOBIN 30.5 pg (29.0-33.0); MEAN CORPUSCULAR HGB CONC 33.2 g/dl (32.0-37.0); MEAN CORPUSCULAR VOLUME 91.8 fl (82.0-101.0); MEAN PLATELET VOLUME 10.1 fl (7.4-10.4); MONOCYTES % 6.4 % (0.0-11.0); NEUTROPHIL # 12.3 10^3/ul (1.6-7.5); PLATELET COUNT 190 10^3/UL (140-415); RED BLOOD COUNT 2.79 10^6/ul (4.20-5.40); RED CELL DISTRIBUTION WIDTH 15.6 % (11.5-14.5)
[2019-02-23 19:49] LABS: ALANINE AMINOTRANSFERASE 51 IU/L (13-69); ALBUMIN 2.3 g/dl (3.3-4.9); ALBUMIN/GLOBULIN RATIO 0.63; ALKALINE PHOSPHATASE 414 IU/L (42-121); AMYLASE 131 U/L (11-123); ANION GAP 10 (5-13); ASPARTATE AMINO TRANSFERASE 65 IU/L (15-46); BILIRUBIN,INDIRECT 1.1 mg/dl (0-1.1); BILIRUBIN,TOTAL 1.1 mg/dl (0.2-1.3); BLOOD UREA NITROGEN 40 mg/dl (7-20); CALCIUM 7.7 mg/dl (8.4-10.2); CARBON DIOXIDE 14 mmol/L (21-31); CHLORIDE 101 mmol/L (97-110); CREATININE 1.53 mg/dl (0.44-1.00); GLUCOSE 167 mg/dl (70-220); LIPASE 263 U/L (23-300); POTASSIUM 5.1 mmol/L (3.5-5.1); SODIUM 125 mmol/L (135-144); TOTAL PROTEIN 5.9 g/dl (6.1-8.1)
[2019-02-23 19:53] LABS: INR 1.44; PROTIME 17.6 Sec (11.9-14.9); PT RATIO 1.4
[2019-02-23 19:54] LABS: PARTIAL THROMBOPLASTIN TIME 37.1 Sec (23.0-35.0)
[2019-02-23 20:00] LABS: TROPONIN-I < 0.012 ng/ml (0.000-0.120)
[2019-02-23] MEDS: LIDOCAINE 1% (MPF) 5 ML VIAL (20:27)
[2019-02-23] MEDS: ONDANSETRON 4 MG INJ IV ×2 (20:28→22:09)
[2019-02-23] MEDS: morphine 2 MG INJ IV ×2 (20:28→22:09)
[2019-02-23] MEDS: SOD CHLORIDE 0.9% 500 ML IV (22:10)
[2019-02-23] MEDS ORDERED: ONDANSETRON 4 MG INJ IV ×2 (22:30→23:00)
[2019-02-23] MEDS ORDERED: ACETAMINOPHEN 325 MG TAB PO ×2 (22:30→23:00)
[2019-02-23 22:31] LABS: OCCULT BLOOD STOOL POSITIVE (NEGATIVE)
[2019-02-23] MEDS ORDERED: ALBUTEROL/IPRATROPIUM (NEB) 3 ML AMP HHN (23:00)
[2019-02-23] MEDS ORDERED: NACL 0.9% 3 ML SYG IV (23:00)
[2019-02-23] MEDS: ALBUMIN HUMAN 25% 100 ML IV (23:55)
[2019-02-24] MEDS: ALBUMIN HUMAN 25% 100 ML IV (01:10)
[2019-02-24 05:47] LABS: ADD MAN DIFF? NO
[2019-02-24 05:59] LABS: WHITE BLOOD COUNT 9.3 10^3/ul (4.8-10.8)
[2019-02-24 05:59] LABS: ABNORMAL IP MESSAGE 1; BASOPHILS % 0.3 % (0.0-2.0); EOSINOPHILS # 0.1 10^3/ul (0.0-0.5); EOSINOPHILS % 1.4 % (0.0-7.0); HEMATOCRIT 18.8 % (37.0-47.0); LYMPHOCYTES # 1.4 10^3/ul (0.8-2.9); LYMPHOCYTES % 15.2 % (15.0-51.0); MEAN CORPUSCULAR HEMOGLOBIN 30.6 pg (29.0-33.0); MEAN CORPUSCULAR HGB CONC 33.5 g/dl (32.0-37.0); MEAN CORPUSCULAR VOLUME 91.3 fl (82.0-101.0); MEAN PLATELET VOLUME 10.2 fl (7.4-10.4); MONOCYTE # 1.2 10^3/ul (0.3-0.9); NEUTROPHIL # 6.4 10^3/ul (1.6-7.5); NEUTROPHILS % 69.2 % (39.0-77.0); PLATELET COUNT 98 10^3/UL (140-415); RED BLOOD COUNT 2.06 10^6/ul (4.20-5.40); RED CELL DISTRIBUTION WIDTH 15.6 % (11.5-14.5)
[2019-02-24 06:02] LABS: POSITIVE DIFF @See below
[2019-02-24 06:03] LABS: PATH REVIEW? YES
[2019-02-24 06:04] LABS: HEMOGLOBIN 6.3 g/dl (12.0-16.0)
[2019-02-24] MEDS: PANTOPRAZOLE (EC) 40 MG TAB PO (06:14)
[2019-02-24 07:13] LABS: ALANINE AMINOTRANSFERASE 49 IU/L (13-69); ALBUMIN 2.5 g/dl (3.3-4.9); ALBUMIN/GLOBULIN RATIO 0.83; ALKALINE PHOSPHATASE 294 IU/L (42-121); ANION GAP 8 (5-13); ASPARTATE AMINO TRANSFERASE 56 IU/L (15-46); BILIRUBIN,INDIRECT 0.9 mg/dl (0-1.1); BILIRUBIN,TOTAL 0.9 mg/dl (0.2-1.3); BLOOD UREA NITROGEN 52 mg/dl (7-20); CARBON DIOXIDE 16 mmol/L (21-31); CHLORIDE 105 mmol/L (97-110); CREATININE 1.28 mg/dl (0.44-1.00); GLUCOSE 95 mg/dl (70-220); MAGNESIUM 1.8 mg/dl (1.7-2.5); POTASSIUM 4.6 mmol/L (3.5-5.1); SODIUM 129 mmol/L (135-144); TOTAL PROTEIN 5.5 g/dl (6.1-8.1)
[2019-02-24 08:08] LABS: ADD MAN DIFF? NO
[2019-02-24 08:11] LABS: WHITE BLOOD COUNT 9.9 10^3/ul (4.8-10.8)
[2019-02-24 08:11] LABS: BASOPHIL # 0.1 10^3/ul (0.0-0.1); BASOPHILS % 0.5 % (0.0-2.0); EOSINOPHILS # 0.1 10^3/ul (0.0-0.5); EOSINOPHILS % 1.4 % (0.0-7.0); HEMATOCRIT 21.1 % (37.0-47.0); HEMOGLOBIN 7.2 g/dl (12.0-16.0); LYMPHOCYTES # 1.5 10^3/ul (0.8-2.9); LYMPHOCYTES % 15.6 % (15.0-51.0); MEAN CORPUSCULAR HGB CONC 34.1 g/dl (32.0-37.0); MEAN CORPUSCULAR VOLUME 90.9 fl (82.0-101.0); MEAN PLATELET VOLUME 9.7 fl (7.4-10.4); MONOCYTE # 1.1 10^3/ul (0.3-0.9); MONOCYTES % 11.3 % (0.0-11.0); NEUTROPHIL # 6.9 10^3/ul (1.6-7.5); NEUTROPHILS % 69.9 % (39.0-77.0); PLATELET COUNT 112 10^3/UL (140-415); RED BLOOD COUNT 2.32 10^6/ul (4.20-5.40); RED CELL DISTRIBUTION WIDTH 15.6 % (11.5-14.5)
[2019-02-24] MEDS: RIFAXIMIN 550 MG TAB PO ×2 (08:21→21:46)
[2019-02-24 08:36] LABS: IRON 77 ug/dl (35-150)
[2019-02-24 08:45] LABS: % IRON SATURATION 35 % SAT (22-52); TOTAL IRON BINDING CAPACITY 219 ug/dl (241-421)
[2019-02-24] MEDS ORDERED: NON-FORMULARY/PATIENT OWN MED (Omeprazole* 40 MG) PO (09:00)
[2019-02-24 09:10] LABS: FERRITIN 48.5 ng/ml (11.1-264.0)
[2019-02-24 09:41] LABS: FOLATE 11.5 ng/ml (2.8-20.0)
[2019-02-24 10:40] LABS: ANISOCYTOSIS 1+ (0-0); BAND NEUTROPHILS #M 0.2 10^3/ul (0.0-0.6); BAND NEUTROPHILS % (M) 3 % (0-4); BASOPHIL #M 0.1 10^3/ul (0.0-0.0); BASOPHILS % (M) 2 % (0-2); BURR CELLS 1+ (0-0); EOSINOPHILS % (M) 1 % (0-7); GIANT THROMBO% (M) 1 % (0-0); LYMPHOCYTES #M 1.1 10^3/ul (0.8-2.9); LYMPHOCYTES % (M) 12 % (15-51); MONOCYTE #M 0.3 10^3/ul (0.3-0.9); MONOCYTES % (M) 4 % (0-11); PLATELET ESTIMATE DECREASED; POIKILOCYTOSIS 1+ (0-0); SEG NEUT #M 7.3 10^3/ul (1.6-7.5); SEGMENTED NEUTROPHILS (M) % 78 % (39-77); SMUDGE%M 12 % (0-0)
[2019-02-24] MEDS: PHYTONADIONE 10 MG/ML INJ SC (11:31)
[2019-02-24 11:57] LABS: HEPATITIS B SURFACE ANTIGEN NEGATIVE (NEGATIVE)
[2019-02-24 12:15] LABS: HEPATITIS C VIRAL ANTIBODY NEGATIVE (NEGATIVE)
[2019-02-24 15:12] LABS: ADD MAN DIFF? NO
[2019-02-24 15:15] LABS: WHITE BLOOD COUNT 10.3 10^3/ul (4.8-10.8)
[2019-02-24 15:15] LABS: BASOPHILS % 0.4 % (0.0-2.0); EOSINOPHILS # 0.2 10^3/ul (0.0-0.5); EOSINOPHILS % 1.5 % (0.0-7.0); HEMATOCRIT 21.9 % (37.0-47.0); HEMOGLOBIN 7.3 g/dl (12.0-16.0); LYMPHOCYTES # 1.3 10^3/ul (0.8-2.9); LYMPHOCYTES % 12.3 % (15.0-51.0); MEAN CORPUSCULAR HEMOGLOBIN 30.4 pg (29.0-33.0); MEAN CORPUSCULAR HGB CONC 33.3 g/dl (32.0-37.0); MEAN CORPUSCULAR VOLUME 91.3 fl (82.0-101.0); MEAN PLATELET VOLUME 10.3 fl (7.4-10.4); MONOCYTE # 0.8 10^3/ul (0.3-0.9); MONOCYTES % 7.3 % (0.0-11.0); NEUTROPHILS % 77.7 % (39.0-77.0); PLATELET COUNT 121 10^3/UL (140-415); RED CELL DISTRIBUTION WIDTH 15.5 % (11.5-14.5)
[2019-02-25 05:56] LABS: ADD MAN DIFF? NO
[2019-02-25 06:07] LABS: WHITE BLOOD COUNT 8.8 10^3/ul (4.8-10.8)
[2019-02-25 06:07] LABS: ABNORMAL IP MESSAGE 1; BASOPHILS % 0.5 % (0.0-2.0); EOSINOPHILS # 0.2 10^3/ul (0.0-0.5); EOSINOPHILS % 1.9 % (0.0-7.0); LYMPHOCYTES # 1.4 10^3/ul (0.8-2.9); LYMPHOCYTES % 15.7 % (15.0-51.0); MEAN CORPUSCULAR HEMOGLOBIN 30.8 pg (29.0-33.0); MEAN CORPUSCULAR VOLUME 90.5 fl (82.0-101.0); MEAN PLATELET VOLUME 10.2 fl (7.4-10.4); MONOCYTE # 0.7 10^3/ul (0.3-0.9); MONOCYTES % 8.3 % (0.0-11.0); NEUTROPHIL # 6.4 10^3/ul (1.6-7.5); NEUTROPHILS % 72.8 % (39.0-77.0); PLATELET COUNT 107 10^3/UL (140-415); RED BLOOD COUNT 2.21 10^6/ul (4.20-5.40); RED CELL DISTRIBUTION WIDTH 15.8 % (11.5-14.5)
[2019-02-25 06:22] LABS: INR 1.32; PROTIME 16.5 Sec (11.9-14.9); PT RATIO 1.3
[2019-02-25 06:23] LABS: PARTIAL THROMBOPLASTIN TIME 40.7 Sec (23.0-35.0)
[2019-02-25 06:29] LABS: AMMONIA 56 umol/l (9-30)
[2019-02-25] MEDS: PANTOPRAZOLE (EC) 40 MG TAB PO (06:46)
[2019-02-25 06:47] LABS: ANION GAP 7 (5-13); BLOOD UREA NITROGEN 50 mg/dl (7-20); CALCIUM 8.1 mg/dl (8.4-10.2); CARBON DIOXIDE 15 mmol/L (21-31); CHLORIDE 109 mmol/L (97-110); CREATININE 1.18 mg/dl (0.44-1.00); GLUCOSE 108 mg/dl (70-220); POTASSIUM 4.2 mmol/L (3.5-5.1); SODIUM 131 mmol/L (135-144)
[2019-02-25 07:00] LABS: HEMOGLOBIN 6.8 g/dl (12.0-16.0); POSITIVE DIFF @See below
[2019-02-25 07:05] LABS: ALPHA FETOPROTEIN 3.52 IU/L (0.00-7.21)
[2019-02-25] MEDS: RIFAXIMIN 550 MG TAB PO ×2 (09:07→20:43)
[2019-02-25] MEDS: PHYTONADIONE 10 MG/ML INJ SC (15:05)
[2019-02-25 16:52] LABS: IMMEDIATE SPIN CROSSMATCH 1 1
[2019-02-26] MEDS: PANTOPRAZOLE (EC) 40 MG TAB PO ×3 (05:54→19:35)
[2019-02-26] MEDS: PHYTONADIONE 10 MG/ML INJ SC ×2 (09:00→11:19)
[2019-02-26] MEDS: RIFAXIMIN 550 MG TAB PO ×2 (11:19→20:51)
[2019-02-26] MEDS: ONDANSETRON 4 MG INJ IV (11:19)
[2019-02-26 12:42] LABS: ADD MAN DIFF? NO
[2019-02-26 12:46] LABS: BASOPHIL # 0.1 10^3/ul (0.0-0.1); BASOPHILS % 0.9 % (0.0-2.0); EOSINOPHILS # 0.1 10^3/ul (0.0-0.5); EOSINOPHILS % 1.7 % (0.0-7.0); LYMPHOCYTES % 13.9 % (15.0-51.0); MEAN CORPUSCULAR HEMOGLOBIN 29.7 pg (29.0-33.0); MEAN CORPUSCULAR HGB CONC 33.3 g/dl (32.0-37.0); MEAN CORPUSCULAR VOLUME 89.1 fl (82.0-101.0); MONOCYTE # 0.6 10^3/ul (0.3-0.9); MONOCYTES % 8.4 % (0.0-11.0); NEUTROPHIL # 5.2 10^3/ul (1.6-7.5); NEUTROPHILS % 74.1 % (39.0-77.0); PLATELET COUNT 107 10^3/UL (140-415); RED BLOOD COUNT 3.03 10^6/ul (4.20-5.40); RED CELL DISTRIBUTION WIDTH 17.7 % (11.5-14.5)
[2019-02-26 12:46] LABS: WHITE BLOOD COUNT 7.1 10^3/ul (4.8-10.8)
[2019-02-26] MEDS ORDERED: PROPOFOL 20 ML (13:15)
[2019-02-26] MEDS ORDERED: LIDOCAINE 100 MG SYRINGE (13:15)
[2019-02-26 13:35] LABS: ANA SCREEN NEGATIVE (NEGATIVE)
[2019-02-26] MEDS: SPIRONOLACTONE 25 MG TAB PO (16:18)
[2019-02-26 18:21] LABS: HEMOGLOBIN 8.5 g/dl (12.0-16.0)
[2019-02-27 01:00] LABS: HEMATOCRIT 24.6 % (37.0-47.0); HEMOGLOBIN 8.3 g/dl (12.0-16.0)
[2019-02-27] MEDS: PANTOPRAZOLE (EC) 40 MG TAB PO (05:44)
[2019-02-27] MEDS: SPIRONOLACTONE 25 MG TAB PO (05:44)
[2019-02-27 06:00] LABS: ADD MAN DIFF? NO
[2019-02-27 06:05] LABS: WHITE BLOOD COUNT 6.2 10^3/ul (4.8-10.8)
[2019-02-27 06:05] LABS: BASOPHILS % 0.6 % (0.0-2.0); EOSINOPHILS # 0.1 10^3/ul (0.0-0.5); EOSINOPHILS % 2.1 % (0.0-7.0); HEMATOCRIT 24.9 % (37.0-47.0); HEMOGLOBIN 8.4 g/dl (12.0-16.0); MEAN CORPUSCULAR HEMOGLOBIN 30.2 pg (29.0-33.0); MEAN CORPUSCULAR HGB CONC 33.7 g/dl (32.0-37.0); MEAN CORPUSCULAR VOLUME 89.6 fl (82.0-101.0); MEAN PLATELET VOLUME 10.1 fl (7.4-10.4); MONOCYTE # 0.5 10^3/ul (0.3-0.9); MONOCYTES % 8.3 % (0.0-11.0); NEUTROPHIL # 4.5 10^3/ul (1.6-7.5); NEUTROPHILS % 72.2 % (39.0-77.0); PLATELET COUNT 110 10^3/UL (140-415); RED BLOOD COUNT 2.78 10^6/ul (4.20-5.40); RED CELL DISTRIBUTION WIDTH 17.5 % (11.5-14.5)
[2019-02-27 06:30] LABS: ANION GAP 7 (5-13); BLOOD UREA NITROGEN 32 mg/dl (7-20); CALCIUM 8.1 mg/dl (8.4-10.2); CARBON DIOXIDE 16 mmol/L (21-31); CHLORIDE 113 mmol/L (97-110); CREATININE 1.08 mg/dl (0.44-1.00); GLUCOSE 107 mg/dl (70-220); POTASSIUM 4.4 mmol/L (3.5-5.1); SODIUM 136 mmol/L (135-144)
[2019-02-27] MEDS: RIFAXIMIN 550 MG TAB PO (08:33)
[2019-02-27 12:00] LABS: HEMOGLOBIN 8.7 g/dl (12.0-16.0)
[2019-02-27 12:52] LABS: MITOCHONDRIAL TB NEGATIVE (NEGATIVE); SMOOTH MUSCLE AB SCREEN NEGATIVE (NEGATIVE)
[2019-02-27 15:13] LABS: ALPHA 1 ANTITRYPSIN 138 mg/dL (83-199)
[2019-02-27] MEDS ORDERED: PROPRANOLOL 10 MG TAB PO (21:00)
== END 2019-02-27 17:11 | disposition home or self-care (01) | DRG 432 ==
LOC: E/R 18:23 → 6WM 22:11
PROC: 06L38CZ Occlusion of Esophageal Vein with Extraluminal Device, Via Natural or Artificial Opening Endoscopic (ICD-10-PCS; principal; 2019-02-26 12:30)
PROC: 0W9G3ZZ Drainage of Peritoneal Cavity, Percutaneous Approach (ICD-10-PCS; 2019-02-26 12:30)
PROC: 30233N1 Transfusion of Nonautologous Red Blood Cells into Peripheral Vein, Percutaneous Approach (ICD-10-PCS; 2019-02-26 12:30)
DX: K74.69 Other cirrhosis of liver (principal); I85.11 Secondary esophageal varices with bleeding; R18.8 Other ascites; N17.9 Acute kidney failure, unspecified; D62 Acute posthemorrhagic anemia; E87.1 Hypo-osmolality and hyponatremia; K76.6 Portal hypertension; R65.10 Systemic inflammatory response syndrome (SIRS) of non-infectious origin without acute organ dysfunction; D69.59 Other secondary thrombocytopenia; D63.8 Anemia in other chronic diseases classified elsewhere; K72.90 Hepatic failure, unspecified without coma; K31.89 Other diseases of stomach and duodenum; N18.3 Chronic kidney disease, stage 3 (moderate)
CPT/HCPCS: 36430; 80048; 80053; 82103; 82105; 82140; 82150; 82270; 82607; 82728; 82746; 83540; 83690; 83735; 84484; 85014; 85018; 85025; 85610; 85730; 86038; 86255; 86803; 86850; 86900; 86901; 86920; 87040-91; 87081; 87340; 93005; 99285-25

== ENCOUNTER 2019-04-04 20:10 | Inpatient (IN) | payer OTHER ==
[2019-04-04 20:20] LABS: ADD MAN DIFF? NO
[2019-04-04 20:23] LABS: BASOPHIL # 0.1 10^3/ul (0.0-0.1); BASOPHILS % 0.6 % (0.0-2.0); EOSINOPHILS # 0.8 10^3/ul (0.0-0.5); EOSINOPHILS % 6.4 % (0.0-7.0); HEMATOCRIT 29.7 % (37.0-47.0); HEMOGLOBIN 9.7 g/dl (12.0-16.0); LYMPHOCYTES # 2.6 10^3/ul (0.8-2.9); LYMPHOCYTES % 21.1 % (15.0-51.0); MEAN CORPUSCULAR HEMOGLOBIN 30.4 pg (29.0-33.0); MEAN CORPUSCULAR HGB CONC 32.7 g/dl (32.0-37.0); MEAN CORPUSCULAR VOLUME 93.1 fl (82.0-101.0); MEAN PLATELET VOLUME 9.8 fl (7.4-10.4); MONOCYTE # 0.8 10^3/ul (0.3-0.9); MONOCYTES % 6.8 % (0.0-11.0); NEUTROPHILS % 64.2 % (39.0-77.0); PLATELET COUNT 176 10^3/UL (140-415); RED BLOOD COUNT 3.19 10^6/ul (4.20-5.40); RED CELL DISTRIBUTION WIDTH 17.5 % (11.5-14.5)
[2019-04-04 20:23] LABS: WHITE BLOOD COUNT 12.4 10^3/ul (4.8-10.8)
[2019-04-04] MEDS: FUROSEMIDE 40 MG INJ IV (20:31)
[2019-04-04] MEDS: NITROGLYCERIN 50 MG/D5W (PMX) 250 ML IV (20:37)
[2019-04-04 20:38] LABS: INR 1.33; PROTIME 16.6 Sec (11.9-14.9); PT RATIO 1.3
[2019-04-04 20:39] LABS: PARTIAL THROMBOPLASTIN TIME 39.3 Sec (23.0-35.0)
[2019-04-04 20:40] LABS: Blood Gas IEPAP 15/5; MODE MASK - BIPAP; MetHgb Venous 0.3 %; Sample Type Blood venous; Site VENOUS LINE; Venous COHb 0.3 %; Venous Fraction OxyHgb 70.8 %; Venous Oxygen Sat 71.2 mmHG (55.0-75.0); Venous Total Hemglobin 10.3 g/dl
[2019-04-04 20:43] LABS: ANION GAP 8 (5-13); BLOOD UREA NITROGEN 22 mg/dl (7-20); CALCIUM 8.4 mg/dl (8.4-10.2); CARBON DIOXIDE 16 mmol/L (21-31); CHLORIDE 107 mmol/L (97-110); CREATININE 2.03 mg/dl (0.44-1.00); GLUCOSE 173 mg/dl (70-220); POTASSIUM 4.1 mmol/L (3.5-5.1); SODIUM 131 mmol/L (135-144)
[2019-04-04 20:53] LABS: B-TYPE NATRIURETIC PEPTIDE 1550 PG/ML (0-450); TROPONIN-I < 0.012 ng/ml (0.000-0.120)
[2019-04-04] MEDS: CEFTRIAXONE 1 GM/50 ML (PMX) 50 ML IVPB (21:02)
[2019-04-04] MEDS: AZITHROMYCIN 500MG/NS (PMX) 250 ML IV (21:20)
[2019-04-04] MEDS ORDERED: ONDANSETRON 4 MG INJ IV ×2 (21:30→23:00)
[2019-04-04] MEDS ORDERED: ACETAMINOPHEN 325 MG TAB PO ×2 (21:30→23:00)
[2019-04-04 22:55] LABS: ADD UMIC YES; UR ASCORBIC ACID NEGATIVE (NEGATIVE); UR BACTERIA MANY /HPF (NONE SEEN); UR BILIRUBIN (Dip) NEGATIVE (NEGATIVE); UR BLOOD (Dip) 1+ mg/dL (NEGATIVE); UR BUDDING YEAST MANY /HPF (NONE SEEN); UR CLARITY CLOUDY (CLEAR); UR COLOR YELLOW (YELLOW); UR GLUCOSE (Dip) NEGATIVE (NEGATIVE); UR KETONES (Dip) NEGATIVE (NEGATIVE); UR LEUKOCYTE ESTERASE (Dip) 3+ Leu/ul (NEGATIVE); UR MUCUS FEW /HPF (NONE SEEN); UR NITRITE (Dip) NEGATIVE (NEGATIVE); UR RBC 28 /HPF (0-5); UR SPECIFIC GRAVITY (Dip) 1.009 (1.003-1.030); UR SQUAMOUS EPITHELIAL CELL MODERATE /HPF (FEW); UR TOTAL PROTEIN (Dip) NEGATIVE (NEGATIVE); UR UROBILINOGEN (Dip) NEGATIVE (NEGATIVE); UR WBC 117 /HPF (0-5)
[2019-04-04 22:59] LABS: LACTIC ACID 2.5 mmol/L (0.5-2.0)
[2019-04-04] MEDS ORDERED: NACL 0.9% 3 ML SYG IV (23:00)
[2019-04-04] MEDS ORDERED: ALBUTEROL/IPRATROPIUM (NEB) 3 ML AMP HHN (23:00)
[2019-04-04 23:11] LABS: CREATINE KINASE 47 IU/L (23-200)
[2019-04-04 23:24] LABS: CK-MB 1.41 ng/ml (0.0-2.4); TROPONIN-I < 0.012 ng/ml (0.000-0.120)
[2019-04-05 01:29] LABS: LACTIC ACID 1.9 mmol/L (0.5-2.0)
[2019-04-05 05:59] LABS: ADD MAN DIFF? NO
[2019-04-05 06:34] LABS: CREATINE KINASE 40 IU/L (23-200)
[2019-04-05 06:36] LABS: BASOPHIL # 0.1 10^3/ul (0.0-0.1); BASOPHILS % 0.3 % (0.0-2.0); EOSINOPHILS # 0.2 10^3/ul (0.0-0.5); HEMATOCRIT 24.8 % (37.0-47.0); HEMOGLOBIN 8.2 g/dl (12.0-16.0); LYMPHOCYTES % 10.3 % (15.0-51.0); MEAN CORPUSCULAR HEMOGLOBIN 30.8 pg (29.0-33.0); MEAN CORPUSCULAR HGB CONC 33.1 g/dl (32.0-37.0); MEAN CORPUSCULAR VOLUME 93.2 fl (82.0-101.0); MEAN PLATELET VOLUME 10.3 fl (7.4-10.4); MONOCYTE # 1.3 10^3/ul (0.3-0.9); MONOCYTES % 6.8 % (0.0-11.0); NEUTROPHIL # 15.6 10^3/ul (1.6-7.5); NEUTROPHILS % 80.5 % (39.0-77.0); PLATELET COUNT 115 10^3/UL (140-415); RED BLOOD COUNT 2.66 10^6/ul (4.20-5.40); RED CELL DISTRIBUTION WIDTH 17.3 % (11.5-14.5)
[2019-04-05 06:36] LABS: WHITE BLOOD COUNT 19.3 10^3/ul (4.8-10.8)
[2019-04-05 06:37] LABS: ALANINE AMINOTRANSFERASE 34 IU/L (13-69); ALBUMIN 2.3 g/dl (3.3-4.9); ALBUMIN/GLOBULIN RATIO 0.71; ALKALINE PHOSPHATASE 311 IU/L (42-121); ANION GAP 8 (5-13); ASPARTATE AMINO TRANSFERASE 36 IU/L (15-46); BILIRUBIN,INDIRECT 1.7 mg/dl (0-1.1); BILIRUBIN,TOTAL 1.7 mg/dl (0.2-1.3); BLOOD UREA NITROGEN 23 mg/dl (7-20); CALCIUM 8.3 mg/dl (8.4-10.2); CARBON DIOXIDE 15 mmol/L (21-31); CHLORIDE 109 mmol/L (97-110); CREATININE 1.96 mg/dl (0.44-1.00); GLUCOSE 116 mg/dl (70-220); MAGNESIUM 1.7 mg/dl (1.7-2.5); POTASSIUM 3.5 mmol/L (3.5-5.1); SODIUM 132 mmol/L (135-144); TOTAL PROTEIN 5.5 g/dl (6.1-8.1)
[2019-04-05 06:43] LABS: CK INDEX 3.3; CK-MB 1.32 ng/ml (0.0-2.4)
[2019-04-05] MEDS: NA BICARBONATE 8.4% 50 ML SYG IV (06:46)
[2019-04-05] MEDS: RIFAXIMIN 550 MG TAB PO ×2 (08:57→21:34)
[2019-04-05] MEDS: FUROSEMIDE 40 MG TAB PO (08:59)
[2019-04-05] MEDS: LACTULOSE 30ML CUP PO ×2 (08:59→21:00)
[2019-04-05] MEDS: SPIRONOLACTONE 50 MG TAB PO (09:00)
[2019-04-05] MEDS: PROPRANOLOL 10 MG TAB PO ×2 (09:00→21:00)
[2019-04-05] MEDS: CEFTRIAXONE 1 GM/50 ML (PMX) 50 ML IVPB (09:02)
[2019-04-05] MEDS ORDERED: VANCOMYCIN IV PER PHARMACY XX (13:30)
[2019-04-05] MEDS: LIDOCAINE 1% (MPF) 5 ML VIAL (14:12)
[2019-04-05] MEDS: CEFEPIME 1GM/50 ML (PMX) 50 ML IVPB (14:27)
[2019-04-05] MEDS: VANCOMYCIN 1.25 GM/NS 250 ML 250 ML IVPB (17:06)
[2019-04-05] MEDS: PANTOPRAZOLE (EC) 40 MG TAB PO (17:06)
[2019-04-06] MEDS ORDERED: ALBUMIN HUMAN 25% 100 ML (00:17)
[2019-04-06] MEDS: ALBUMIN HUMAN 25% 100 ML IV ×2 (00:28→06:09)
[2019-04-06] MEDS: SOD CHLORIDE 0.9% 150 ML IV (02:06)
[2019-04-06] MEDS: SOD CHLORIDE 0.9% 250 ML IV (04:05)
[2019-04-06 05:39] LABS: ADD MAN DIFF? NO
[2019-04-06 05:45] LABS: WHITE BLOOD COUNT 6.1 10^3/ul (4.8-10.8)
[2019-04-06 05:45] LABS: ABNORMAL IP MESSAGE 1; BASOPHILS % 0.5 % (0.0-2.0); EOSINOPHILS # 0.4 10^3/ul (0.0-0.5); EOSINOPHILS % 6.7 % (0.0-7.0); HEMATOCRIT 22.2 % (37.0-47.0); HEMOGLOBIN 7.4 g/dl (12.0-16.0); LYMPHOCYTES # 1.2 10^3/ul (0.8-2.9); LYMPHOCYTES % 19.1 % (15.0-51.0); MEAN CORPUSCULAR HGB CONC 33.3 g/dl (32.0-37.0); MEAN CORPUSCULAR VOLUME 92.9 fl (82.0-101.0); MEAN PLATELET VOLUME 10.2 fl (7.4-10.4); MONOCYTE # 0.7 10^3/ul (0.3-0.9); MONOCYTES % 10.6 % (0.0-11.0); NEUTROPHIL # 3.8 10^3/ul (1.6-7.5); NEUTROPHILS % 62.3 % (39.0-77.0); PLATELET COUNT 73 10^3/UL (140-415); RED BLOOD COUNT 2.39 10^6/ul (4.20-5.40)
[2019-04-06 06:06] LABS: POSITIVE DIFF @See below
[2019-04-06] MEDS: PANTOPRAZOLE (EC) 40 MG TAB PO ×2 (06:08→16:33)
[2019-04-06 06:29] LABS: ANION GAP 7 (5-13); BLOOD UREA NITROGEN 23 mg/dl (7-20); CARBON DIOXIDE 17 mmol/L (21-31); CHLORIDE 109 mmol/L (97-110); CREATININE 1.83 mg/dl (0.44-1.00); GLUCOSE 106 mg/dl (70-220); SODIUM 133 mmol/L (135-144)
[2019-04-06] MEDS: POTASSIUM CHLORIDE (SR) 20 MEQ TAB PO (06:43)
[2019-04-06] MEDS: SPIRONOLACTONE 50 MG TAB PO (09:00)
[2019-04-06] MEDS: FUROSEMIDE 40 MG TAB PO (09:00)
[2019-04-06] MEDS: PROPRANOLOL 10 MG TAB PO ×2 (09:00→21:00)
[2019-04-06] MEDS: RIFAXIMIN 550 MG TAB PO ×2 (09:14→21:05)
[2019-04-06] MEDS: LACTULOSE 30ML CUP PO ×2 (09:14→21:05)
[2019-04-06] MEDS: MEROPENEM 500MG/50 ML (PMX) 50 ML IVPB ×2 (11:19→21:10)
[2019-04-06] MEDS ORDERED: CEFEPIME 1GM/50 ML IVPB (14:00)
[2019-04-07] MEDS: PANTOPRAZOLE (EC) 40 MG TAB PO ×2 (06:21→17:47)
[2019-04-07 07:03] LABS: BLOOD UREA NITROGEN 23 mg/dl (7-20)
[2019-04-07 07:03] LABS: CREATININE 1.47 mg/dl (0.44-1.00)
[2019-04-07] MEDS: SPIRONOLACTONE 50 MG TAB PO (09:00)
[2019-04-07] MEDS: PROPRANOLOL 10 MG TAB PO ×2 (09:00→21:40)
[2019-04-07] MEDS: FUROSEMIDE 40 MG TAB PO (09:12)
[2019-04-07] MEDS: RIFAXIMIN 550 MG TAB PO ×2 (09:12→21:40)
[2019-04-07] MEDS: MEROPENEM 500MG/50 ML (PMX) 50 ML IVPB ×2 (09:12→21:38)
[2019-04-07] MEDS: LACTULOSE 30ML CUP PO ×2 (09:12→21:38)
[2019-04-07] MEDS: VANCOMYCIN 1 GM 250 ML IVPB (17:47)
[2019-04-08 06:33] LABS: ADD MAN DIFF? NO
[2019-04-08 06:42] LABS: WHITE BLOOD COUNT 8.9 10^3/ul (4.8-10.8)
[2019-04-08 06:42] LABS: BASOPHIL # 0.1 10^3/ul (0.0-0.1); BASOPHILS % 0.7 % (0.0-2.0); EOSINOPHILS # 0.6 10^3/ul (0.0-0.5); EOSINOPHILS % 6.9 % (0.0-7.0); HEMATOCRIT 26.3 % (37.0-47.0); HEMOGLOBIN 8.6 g/dl (12.0-16.0); LYMPHOCYTES # 1.8 10^3/ul (0.8-2.9); LYMPHOCYTES % 19.6 % (15.0-51.0); MEAN CORPUSCULAR HEMOGLOBIN 30.5 pg (29.0-33.0); MEAN CORPUSCULAR HGB CONC 32.7 g/dl (32.0-37.0); MEAN CORPUSCULAR VOLUME 93.3 fl (82.0-101.0); MEAN PLATELET VOLUME 10.1 fl (7.4-10.4); MONOCYTE # 0.9 10^3/ul (0.3-0.9); NEUTROPHIL # 5.5 10^3/ul (1.6-7.5); NEUTROPHILS % 61.9 % (39.0-77.0); PLATELET COUNT 109 10^3/UL (140-415); RED BLOOD COUNT 2.82 10^6/ul (4.20-5.40); RED CELL DISTRIBUTION WIDTH 16.6 % (11.5-14.5)
[2019-04-08] MEDS: PANTOPRAZOLE (EC) 40 MG TAB PO ×2 (06:56→16:33)
[2019-04-08 07:09] LABS: PHOSPHORUS 3.4 mg/dl (2.5-4.9)
[2019-04-08 07:09] LABS: MAGNESIUM 1.8 mg/dl (1.7-2.5)
[2019-04-08 07:10] LABS: ALANINE AMINOTRANSFERASE 32 IU/L (13-69); ALBUMIN 2.4 g/dl (3.3-4.9); ALKALINE PHOSPHATASE 304 IU/L (42-121); ASPARTATE AMINO TRANSFERASE 45 IU/L (15-46); BILIRUBIN,INDIRECT 0.7 mg/dl (0-1.1); BILIRUBIN,TOTAL 0.7 mg/dl (0.2-1.3); TOTAL PROTEIN 5.3 g/dl (6.1-8.1)
[2019-04-08 07:14] LABS: ANION GAP 8 (5-13); BLOOD UREA NITROGEN 21 mg/dl (7-20); CARBON DIOXIDE 18 mmol/L (21-31); CHLORIDE 107 mmol/L (97-110); CREATININE 1.42 mg/dl (0.44-1.00); GLUCOSE 101 mg/dl (70-220); POTASSIUM 3.4 mmol/L (3.5-5.1); SODIUM 133 mmol/L (135-144)
[2019-04-08] MEDS: FUROSEMIDE 40 MG TAB PO (08:17)
[2019-04-08] MEDS: RIFAXIMIN 550 MG TAB PO ×2 (08:17→21:07)
[2019-04-08] MEDS: MEROPENEM 500MG/50 ML (PMX) 50 ML IVPB ×2 (08:18→21:07)
[2019-04-08] MEDS: LACTULOSE 30ML CUP PO ×2 (08:18→21:07)
[2019-04-08] MEDS: PROPRANOLOL 10 MG TAB PO ×2 (09:00→21:09)
[2019-04-08] MEDS: SPIRONOLACTONE 50 MG TAB PO (09:00)
[2019-04-09 05:45] LABS: ADD MAN DIFF? NO
[2019-04-09 05:54] LABS: ABNORMAL IP MESSAGE 1; BASOPHIL # 0.1 10^3/ul (0.0-0.1); BASOPHILS % 0.6 % (0.0-2.0); EOSINOPHILS # 0.5 10^3/ul (0.0-0.5); EOSINOPHILS % 6.6 % (0.0-7.0); HEMATOCRIT 24.6 % (37.0-47.0); HEMOGLOBIN 8.1 g/dl (12.0-16.0); LYMPHOCYTES # 1.6 10^3/ul (0.8-2.9); LYMPHOCYTES % 19.3 % (15.0-51.0); MEAN CORPUSCULAR HEMOGLOBIN 30.5 pg (29.0-33.0); MEAN CORPUSCULAR HGB CONC 32.9 g/dl (32.0-37.0); MEAN CORPUSCULAR VOLUME 92.5 fl (82.0-101.0); MEAN PLATELET VOLUME 10.2 fl (7.4-10.4); MONOCYTE # 0.7 10^3/ul (0.3-0.9); NEUTROPHIL # 5.1 10^3/ul (1.6-7.5); NEUTROPHILS % 63.8 % (39.0-77.0); PLATELET COUNT 90 10^3/UL (140-415); RED BLOOD COUNT 2.66 10^6/ul (4.20-5.40); RED CELL DISTRIBUTION WIDTH 16.6 % (11.5-14.5)
[2019-04-09 05:54] LABS: WHITE BLOOD COUNT 8.1 10^3/ul (4.8-10.8)
[2019-04-09 05:57] LABS: POSITIVE DIFF @See below
[2019-04-09 06:19] LABS: ANION GAP 6 (5-13); BLOOD UREA NITROGEN 23 mg/dl (7-20); CALCIUM 8.2 mg/dl (8.4-10.2); CARBON DIOXIDE 20 mmol/L (21-31); CHLORIDE 106 mmol/L (97-110); CREATININE 1.51 mg/dl (0.44-1.00); GLUCOSE 102 mg/dl (70-220); POTASSIUM 3.2 mmol/L (3.5-5.1); SODIUM 132 mmol/L (135-144)
[2019-04-09] MEDS: PANTOPRAZOLE (EC) 40 MG TAB PO ×2 (06:48→17:39)
[2019-04-09] MEDS: POTASSIUM CHLORIDE (SR) 20 MEQ TAB PO (07:04)
[2019-04-09] MEDS: SPIRONOLACTONE 50 MG TAB PO (08:40)
[2019-04-09] MEDS: PROPRANOLOL 10 MG TAB PO ×2 (08:41→20:34)
[2019-04-09] MEDS: RIFAXIMIN 550 MG TAB PO ×2 (08:42→20:34)
[2019-04-09] MEDS: MEROPENEM 500MG/50 ML (PMX) 50 ML IVPB ×2 (08:43→20:33)
[2019-04-09] MEDS: FUROSEMIDE 40 MG TAB PO (08:44)
[2019-04-09] MEDS: LACTULOSE 30ML CUP PO ×2 (08:47→20:34)
[2019-04-10 05:27] LABS: ADD MAN DIFF? NO
[2019-04-10 05:29] LABS: ABNORMAL IP MESSAGE 1; BASOPHIL # 0.1 10^3/ul (0.0-0.1); BASOPHILS % 0.7 % (0.0-2.0); EOSINOPHILS # 0.6 10^3/ul (0.0-0.5); EOSINOPHILS % 6.3 % (0.0-7.0); HEMATOCRIT 24.9 % (37.0-47.0); HEMOGLOBIN 8.2 g/dl (12.0-16.0); LYMPHOCYTES # 1.7 10^3/ul (0.8-2.9); LYMPHOCYTES % 17.5 % (15.0-51.0); MEAN CORPUSCULAR HGB CONC 32.9 g/dl (32.0-37.0); MEAN CORPUSCULAR VOLUME 91.2 fl (82.0-101.0); MEAN PLATELET VOLUME 10.1 fl (7.4-10.4); MONOCYTE # 0.9 10^3/ul (0.3-0.9); MONOCYTES % 8.5 % (0.0-11.0); NEUTROPHIL # 6.6 10^3/ul (1.6-7.5); NEUTROPHILS % 66.1 % (39.0-77.0); PLATELET COUNT 98 10^3/UL (140-415); RED BLOOD COUNT 2.73 10^6/ul (4.20-5.40); RED CELL DISTRIBUTION WIDTH 16.7 % (11.5-14.5)
[2019-04-10 05:47] LABS: POSITIVE DIFF @See below
[2019-04-10 06:04] LABS: PHOSPHORUS 3.5 mg/dl (2.5-4.9)
[2019-04-10 06:04] LABS: MAGNESIUM 1.8 mg/dl (1.7-2.5)
[2019-04-10 06:30] LABS: ALANINE AMINOTRANSFERASE 39 IU/L (13-69); ALBUMIN 2.4 g/dl (3.3-4.9); ALKALINE PHOSPHATASE 349 IU/L (42-121); ANION GAP 7 (5-13); ASPARTATE AMINO TRANSFERASE 48 IU/L (15-46); BILIRUBIN,INDIRECT 0.9 mg/dl (0-1.1); BILIRUBIN,TOTAL 0.9 mg/dl (0.2-1.3); BLOOD UREA NITROGEN 24 mg/dl (7-20); CALCIUM 8.1 mg/dl (8.4-10.2); CARBON DIOXIDE 18 mmol/L (21-31); CHLORIDE 106 mmol/L (97-110); CREATININE 1.68 mg/dl (0.44-1.00); GLUCOSE 105 mg/dl (70-220); POTASSIUM 3.4 mmol/L (3.5-5.1); SODIUM 131 mmol/L (135-144); TOTAL PROTEIN 5.4 g/dl (6.1-8.1)
[2019-04-10] MEDS: PANTOPRAZOLE (EC) 40 MG TAB PO ×2 (06:30→17:54)
[2019-04-10] MEDS: SPIRONOLACTONE 50 MG TAB PO (09:00)
[2019-04-10] MEDS: LACTULOSE 30ML CUP PO ×2 (09:00→20:50)
[2019-04-10] MEDS: PROPRANOLOL 10 MG TAB PO ×2 (09:00→20:50)
[2019-04-10] MEDS: MEROPENEM 500MG/50 ML (PMX) 50 ML IVPB ×2 (09:27→20:50)
[2019-04-10] MEDS: FUROSEMIDE 40 MG TAB PO (09:28)
[2019-04-10] MEDS: RIFAXIMIN 550 MG TAB PO ×2 (09:29→20:50)
[2019-04-10] MEDS: MAGNESIUM SULFATE 2 GM/50 ML 50 ML IVPB (12:54)
[2019-04-10] MEDS: POTASSIUM CHLORIDE 20 MEQ POWDER FOR ORAL SOLN PO (12:54)
[2019-04-11 05:34] LABS: ADD MAN DIFF? NO
[2019-04-11 05:35] LABS: WHITE BLOOD COUNT 10.5 10^3/ul (4.8-10.8)
[2019-04-11 05:35] LABS: BASOPHIL # 0.1 10^3/ul (0.0-0.1); BASOPHILS % 0.7 % (0.0-2.0); EOSINOPHILS # 0.7 10^3/ul (0.0-0.5); EOSINOPHILS % 6.3 % (0.0-7.0); HEMATOCRIT 24.8 % (37.0-47.0); HEMOGLOBIN 8.1 g/dl (12.0-16.0); LYMPHOCYTES # 1.9 10^3/ul (0.8-2.9); LYMPHOCYTES % 17.8 % (15.0-51.0); MEAN CORPUSCULAR HEMOGLOBIN 29.9 pg (29.0-33.0); MEAN CORPUSCULAR HGB CONC 32.7 g/dl (32.0-37.0); MEAN CORPUSCULAR VOLUME 91.5 fl (82.0-101.0); MONOCYTE # 1.1 10^3/ul (0.3-0.9); MONOCYTES % 10.3 % (0.0-11.0); NEUTROPHIL # 6.7 10^3/ul (1.6-7.5); NEUTROPHILS % 63.7 % (39.0-77.0); PLATELET COUNT 115 10^3/UL (140-415); RED BLOOD COUNT 2.71 10^6/ul (4.20-5.40)
[2019-04-11 06:03] LABS: MAGNESIUM 1.7 mg/dl (1.7-2.5)
[2019-04-11 06:03] LABS: PHOSPHORUS 3.3 mg/dl (2.5-4.9)
[2019-04-11 06:06] LABS: ALANINE AMINOTRANSFERASE 39 IU/L (13-69); ALBUMIN 2.2 g/dl (3.3-4.9); ALKALINE PHOSPHATASE 380 IU/L (42-121); ANION GAP 7 (5-13); ASPARTATE AMINO TRANSFERASE 66 IU/L (15-46); BLOOD UREA NITROGEN 27 mg/dl (7-20); CALCIUM 8.3 mg/dl (8.4-10.2); CARBON DIOXIDE 19 mmol/L (21-31); CHLORIDE 107 mmol/L (97-110); CREATININE 1.68 mg/dl (0.44-1.00); GLUCOSE 109 mg/dl (70-220); POTASSIUM 3.5 mmol/L (3.5-5.1); SODIUM 133 mmol/L (135-144); TOTAL PROTEIN 5.3 g/dl (6.1-8.1)
[2019-04-11] MEDS: PANTOPRAZOLE (EC) 40 MG TAB PO ×2 (06:16→17:52)
[2019-04-11] MEDS: LACTULOSE 30ML CUP PO ×2 (08:43→09:00)
[2019-04-11] MEDS: SPIRONOLACTONE 50 MG TAB PO ×2 (08:44→09:00)
[2019-04-11] MEDS: RIFAXIMIN 550 MG TAB PO (08:44)
[2019-04-11] MEDS: PROPRANOLOL 10 MG TAB PO ×2 (08:44→09:00)
[2019-04-11] MEDS: FUROSEMIDE 40 MG TAB PO (08:44)
[2019-04-11] MEDS: MEROPENEM 500MG/50 ML (PMX) 50 ML IVPB ×2 (08:45→20:21)
== END 2019-04-11 21:06 | DRG 872 ==
LOC: E/R 20:10 → 6WM 21:22
PROC: 0W9G3ZZ Drainage of Peritoneal Cavity, Percutaneous Approach (ICD-10-PCS; principal; 2019-04-05)
DX: A40.1 Sepsis due to streptococcus, group B (principal); N17.9 Acute kidney failure, unspecified; E87.2 Acidosis; E87.1 Hypo-osmolality and hyponatremia; R18.8 Other ascites; N39.0 Urinary tract infection, site not specified; I85.10 Secondary esophageal varices without bleeding; A41.51 Sepsis due to Escherichia coli [E. coli]; K74.69 Other cirrhosis of liver; N18.9 Chronic kidney disease, unspecified; E87.70 Fluid overload, unspecified; D69.59 Other secondary thrombocytopenia; D63.1 Anemia in chronic kidney disease; Z16.12 Extended spectrum beta lactamase (ESBL) resistance; E87.6 Hypokalemia
CPT/HCPCS: 36415; 71045; 80048; 80053; 80076; 81001; 82550; 82553; 82565; 82803; 83605; 83735; 83880; 84100; 84484; 84520; 85025; 85610; 85730; 87040-91; 87086; 93005; 94660; 96374; 96375; 97110; 97162; 97167; 97530; 97535; 99285-25

== ENCOUNTER 2019-04-14 09:56 | Inpatient (IN) | payer OTHER ==
[2019-04-14] MEDS: SOD CHLORIDE 0.9% 500 ML IV (10:28)
[2019-04-14 10:57] LABS: ADD MAN DIFF? NO
[2019-04-14 11:03] LABS: WHITE BLOOD COUNT 7.8 10^3/ul (4.8-10.8)
[2019-04-14 11:03] LABS: BASOPHIL # 0.1 10^3/ul (0.0-0.1); BASOPHILS % 0.8 % (0.0-2.0); EOSINOPHILS # 0.5 10^3/ul (0.0-0.5); EOSINOPHILS % 5.7 % (0.0-7.0); HEMOGLOBIN 7.8 g/dl (12.0-16.0); LYMPHOCYTES # 1.5 10^3/ul (0.8-2.9); LYMPHOCYTES % 18.5 % (15.0-51.0); MEAN CORPUSCULAR HEMOGLOBIN 30.2 pg (29.0-33.0); MEAN CORPUSCULAR HGB CONC 32.5 g/dl (32.0-37.0); MEAN PLATELET VOLUME 10.9 fl (7.4-10.4); MONOCYTE # 0.7 10^3/ul (0.3-0.9); MONOCYTES % 8.6 % (0.0-11.0); NEUTROPHIL # 5.1 10^3/ul (1.6-7.5); NEUTROPHILS % 65.5 % (39.0-77.0); PLATELET COUNT 118 10^3/UL (140-415); RED BLOOD COUNT 2.58 10^6/ul (4.20-5.40); RED CELL DISTRIBUTION WIDTH 17.1 % (11.5-14.5)
[2019-04-14 11:22] LABS: INR 1.47; PROTIME 17.9 Sec (11.9-14.9); PT RATIO 1.4
[2019-04-14 11:23] LABS: PARTIAL THROMBOPLASTIN TIME 44.3 Sec (23.0-35.0)
[2019-04-14] MEDS: ALBUMIN HUMAN 25% 100 ML IV (11:40)
[2019-04-14 11:45] LABS: ALANINE AMINOTRANSFERASE 34 IU/L (13-69); ALBUMIN 2.3 g/dl (3.3-4.9); ALBUMIN/GLOBULIN RATIO 0.76; ALKALINE PHOSPHATASE 321 IU/L (42-121); ANION GAP 9 (5-13); ASPARTATE AMINO TRANSFERASE 49 IU/L (15-46); BILIRUBIN,INDIRECT 0.8 mg/dl (0-1.1); BILIRUBIN,TOTAL 0.8 mg/dl (0.2-1.3); BLOOD UREA NITROGEN 34 mg/dl (7-20); CALCIUM 8.2 mg/dl (8.4-10.2); CARBON DIOXIDE 17 mmol/L (21-31); CHLORIDE 105 mmol/L (97-110); CREATININE 1.81 mg/dl (0.44-1.00); GLUCOSE 158 mg/dl (70-220); LIPASE 565 U/L (23-300); POTASSIUM 3.4 mmol/L (3.5-5.1); SODIUM 131 mmol/L (135-144); TOTAL PROTEIN 5.3 g/dl (6.1-8.1)
[2019-04-14 11:54] LABS: TROPONIN-I < 0.012 ng/ml (0.000-0.120)
[2019-04-14] MEDS ORDERED: ACETAMINOPHEN 325 MG TAB PO (12:30)
[2019-04-14] MEDS ORDERED: ONDANSETRON 4 MG INJ IV ×2 (12:30→13:00)
[2019-04-14] MEDS ORDERED: NACL 0.9% 3 ML SYG IV (13:00)
[2019-04-14] MEDS: MEROPENEM 1 GM/50ML(PMX) 50 ML IVPB ×2 (14:17→20:33)
[2019-04-14] MEDS: POTASSIUM CHLORIDE (SR) 10 MEQ TAB PO (15:41)
[2019-04-14] MEDS: PANTOPRAZOLE (EC) 40 MG TAB PO (18:10)
[2019-04-14] MEDS: RIFAXIMIN 550 MG TAB PO (20:32)
[2019-04-14] MEDS: LACTULOSE 30ML CUP PO (20:32)
[2019-04-15] MEDS: traMADol 50 MG TAB PO (00:43)
[2019-04-15 06:12] LABS: ADD MAN DIFF? NO
[2019-04-15 06:21] LABS: WHITE BLOOD COUNT 7.5 10^3/ul (4.8-10.8)
[2019-04-15 06:21] LABS: ABNORMAL IP MESSAGE 1; BASOPHIL # 0.1 10^3/ul (0.0-0.1); BASOPHILS % 0.8 % (0.0-2.0); EOSINOPHILS # 0.4 10^3/ul (0.0-0.5); EOSINOPHILS % 5.8 % (0.0-7.0); HEMATOCRIT 23.5 % (37.0-47.0); HEMOGLOBIN 7.8 g/dl (12.0-16.0); LYMPHOCYTES # 1.5 10^3/ul (0.8-2.9); LYMPHOCYTES % 19.7 % (15.0-51.0); MEAN CORPUSCULAR HEMOGLOBIN 30.8 pg (29.0-33.0); MEAN CORPUSCULAR HGB CONC 33.2 g/dl (32.0-37.0); MEAN CORPUSCULAR VOLUME 92.9 fl (82.0-101.0); MEAN PLATELET VOLUME 10.7 fl (7.4-10.4); MONOCYTE # 0.8 10^3/ul (0.3-0.9); MONOCYTES % 10.3 % (0.0-11.0); NEUTROPHIL # 4.7 10^3/ul (1.6-7.5); NEUTROPHILS % 62.7 % (39.0-77.0); PLATELET COUNT 92 10^3/UL (140-415); RED BLOOD COUNT 2.53 10^6/ul (4.20-5.40)
[2019-04-15 06:35] LABS: INR 1.41; PROTIME 17.4 Sec (11.9-14.9); PT RATIO 1.4
[2019-04-15 06:36] LABS: PARTIAL THROMBOPLASTIN TIME 45.7 Sec (23.0-35.0)
[2019-04-15 06:47] LABS: ALANINE AMINOTRANSFERASE 37 IU/L (13-69); ALBUMIN 2.4 g/dl (3.3-4.9); ALBUMIN/GLOBULIN RATIO 0.82; ALKALINE PHOSPHATASE 323 IU/L (42-121); AMYLASE 127 U/L (11-123); ANION GAP 7 (5-13); ASPARTATE AMINO TRANSFERASE 46 IU/L (15-46); BILIRUBIN,INDIRECT 0.8 mg/dl (0-1.1); BILIRUBIN,TOTAL 0.8 mg/dl (0.2-1.3); BLOOD UREA NITROGEN 34 mg/dl (7-20); CALCIUM 8.3 mg/dl (8.4-10.2); CARBON DIOXIDE 18 mmol/L (21-31); CHLORIDE 107 mmol/L (97-110); CREATININE 1.71 mg/dl (0.44-1.00); GLUCOSE 103 mg/dl (70-220); LIPASE 490 U/L (23-300); POTASSIUM 3.7 mmol/L (3.5-5.1); SODIUM 132 mmol/L (135-144); TOTAL PROTEIN 5.3 g/dl (6.1-8.1)
[2019-04-15 07:04] LABS: MAGNESIUM 1.8 mg/dl (1.7-2.5)
[2019-04-15 07:04] LABS: PHOSPHORUS 4.1 mg/dl (2.5-4.9)
[2019-04-15 07:51] LABS: POSITIVE DIFF @See below
[2019-04-15] MEDS: RIFAXIMIN 550 MG TAB PO ×2 (08:49→20:25)
[2019-04-15] MEDS: MEROPENEM 1 GM/50ML(PMX) 50 ML IVPB ×2 (08:49→20:20)
[2019-04-15] MEDS: PANTOPRAZOLE (EC) 40 MG TAB PO ×2 (08:49→17:41)
[2019-04-15] MEDS: LACTULOSE 30ML CUP PO ×2 (08:49→20:25)
[2019-04-15] MEDS: ASCORBIC ACID 500 MG TAB.CHEW PO (11:30)
[2019-04-15] MEDS: ZINC SULFATE 220 MG CAP PO (12:51)
[2019-04-15] MEDS: MULTIVITAMINS THERAPEUTIC TAB PO (12:51)
[2019-04-15] MEDS: ASCORBIC ACID 250 MG TAB PO (12:52)
[2019-04-15] MEDS: ALBUMIN HUMAN 25% 100 ML IV (12:53)
[2019-04-15] MEDS ORDERED: ASCORBIC ACID 500 MG TAB PO (16:30)
[2019-04-16 05:40] LABS: ADD MAN DIFF? NO
[2019-04-16 05:45] LABS: ABNORMAL IP MESSAGE 1; BASOPHILS % 0.7 % (0.0-2.0); EOSINOPHILS # 0.3 10^3/ul (0.0-0.5); EOSINOPHILS % 4.6 % (0.0-7.0); HEMATOCRIT 21.8 % (37.0-47.0); LYMPHOCYTES # 1.2 10^3/ul (0.8-2.9); LYMPHOCYTES % 21.7 % (15.0-51.0); MEAN CORPUSCULAR HEMOGLOBIN 30.4 pg (29.0-33.0); MEAN CORPUSCULAR HGB CONC 32.1 g/dl (32.0-37.0); MEAN CORPUSCULAR VOLUME 94.8 fl (82.0-101.0); MEAN PLATELET VOLUME 11.2 fl (7.4-10.4); MONOCYTE # 0.6 10^3/ul (0.3-0.9); MONOCYTES % 10.7 % (0.0-11.0); NEUTROPHIL # 3.4 10^3/ul (1.6-7.5); NEUTROPHILS % 61.9 % (39.0-77.0); RED CELL DISTRIBUTION WIDTH 17.2 % (11.5-14.5)
[2019-04-16 05:45] LABS: WHITE BLOOD COUNT 5.4 10^3/ul (4.8-10.8)
[2019-04-16 06:06] LABS: POSITIVE DIFF @See below
[2019-04-16 06:07] LABS: PLATELET COUNT 72 10^3/UL (140-415)
[2019-04-16 06:36] LABS: ALANINE AMINOTRANSFERASE 35 IU/L (13-69); ALBUMIN 2.3 g/dl (3.3-4.9); ALBUMIN/GLOBULIN RATIO 0.85; ALKALINE PHOSPHATASE 257 IU/L (42-121); AMYLASE 106 U/L (11-123); ANION GAP 7 (5-13); ASPARTATE AMINO TRANSFERASE 36 IU/L (15-46); BILIRUBIN,INDIRECT 1.3 mg/dl (0-1.1); BILIRUBIN,TOTAL 1.3 mg/dl (0.2-1.3); BLOOD UREA NITROGEN 35 mg/dl (7-20); CALCIUM 8.4 mg/dl (8.4-10.2); CARBON DIOXIDE 18 mmol/L (21-31); CHLORIDE 108 mmol/L (97-110); CREATININE 1.62 mg/dl (0.44-1.00); GLUCOSE 86 mg/dl (70-220); LIPASE 381 U/L (23-300); POTASSIUM 3.7 mmol/L (3.5-5.1); SODIUM 133 mmol/L (135-144)
[2019-04-16] MEDS: PANTOPRAZOLE (EC) 40 MG TAB PO ×2 (07:23→16:51)
[2019-04-16 07:36] LABS: MAGNESIUM 1.9 mg/dl (1.7-2.5)
[2019-04-16 07:36] LABS: PHOSPHORUS 4.3 mg/dl (2.5-4.9)
[2019-04-16] MEDS: FUROSEMIDE 20 MG TAB PO (09:00)
[2019-04-16] MEDS ORDERED: ASCORBIC ACID 500 MG TAB PO (09:00)
[2019-04-16] MEDS: LACTULOSE 30ML CUP PO ×2 (09:18→21:16)
[2019-04-16] MEDS: ASCORBIC ACID 500 MG TAB PO (09:19)
[2019-04-16] MEDS: MULTIVITAMINS THERAPEUTIC TAB PO (09:20)
[2019-04-16] MEDS: RIFAXIMIN 550 MG TAB PO ×2 (09:20→21:16)
[2019-04-16] MEDS: MEROPENEM 1 GM/50ML(PMX) 50 ML IVPB ×2 (09:20→21:17)
[2019-04-16] MEDS: ZINC SULFATE 220 MG CAP PO (09:21)
[2019-04-16] MEDS: MUPIROCIN 2% 22 GM OINT TOP ×2 (12:26→21:16)
[2019-04-17] MEDS: PANTOPRAZOLE (EC) 40 MG TAB PO ×2 (05:56→17:22)
[2019-04-17] MEDS: MEROPENEM 1 GM/50ML(PMX) 50 ML IVPB ×2 (08:44→20:40)
[2019-04-17] MEDS: ASCORBIC ACID 500 MG TAB PO (08:47)
[2019-04-17] MEDS: LACTULOSE 30ML CUP PO ×2 (08:47→20:40)
[2019-04-17] MEDS: ZINC SULFATE 220 MG CAP PO (08:47)
[2019-04-17] MEDS: MULTIVITAMINS THERAPEUTIC TAB PO (08:47)
[2019-04-17] MEDS: RIFAXIMIN 550 MG TAB PO ×2 (08:47→20:40)
[2019-04-17] MEDS: FUROSEMIDE 20 MG TAB PO (08:47)
[2019-04-17] MEDS: MUPIROCIN 2% 22 GM OINT TOP ×2 (08:48→20:40)
[2019-04-17 10:18] LABS: OCCULT BLOOD STOOL NEGATIVE (NEGATIVE)
[2019-04-17] MEDS: SOD CHLORIDE 0.9% 500 ML IV (10:24)
[2019-04-17 15:14] LABS: ADD MAN DIFF? NO
[2019-04-17 15:16] LABS: ABNORMAL IP MESSAGE 1; BASOPHILS % 0.7 % (0.0-2.0); EOSINOPHILS # 0.3 10^3/ul (0.0-0.5); EOSINOPHILS % 5.5 % (0.0-7.0); HEMATOCRIT 23.4 % (37.0-47.0); HEMOGLOBIN 7.6 g/dl (12.0-16.0); LYMPHOCYTES # 1.2 10^3/ul (0.8-2.9); MEAN CORPUSCULAR HEMOGLOBIN 31.1 pg (29.0-33.0); MEAN CORPUSCULAR HGB CONC 32.5 g/dl (32.0-37.0); MEAN CORPUSCULAR VOLUME 95.9 fl (82.0-101.0); MEAN PLATELET VOLUME 10.5 fl (7.4-10.4); MONOCYTE # 0.7 10^3/ul (0.3-0.9); MONOCYTES % 10.9 % (0.0-11.0); NEUTROPHIL # 3.7 10^3/ul (1.6-7.5); NEUTROPHILS % 62.4 % (39.0-77.0); PLATELET COUNT 89 10^3/UL (140-415); RED BLOOD COUNT 2.44 10^6/ul (4.20-5.40); RED CELL DISTRIBUTION WIDTH 17.3 % (11.5-14.5)
[2019-04-17 15:18] LABS: POSITIVE DIFF @See below
[2019-04-17 15:38] LABS: ALANINE AMINOTRANSFERASE 32 IU/L (13-69); ALBUMIN 2.4 g/dl (3.3-4.9); ALBUMIN/GLOBULIN RATIO 0.77; ALKALINE PHOSPHATASE 347 IU/L (42-121); ANION GAP 8 (5-13); ASPARTATE AMINO TRANSFERASE 42 IU/L (15-46); BILIRUBIN,INDIRECT 1.2 mg/dl (0-1.1); BILIRUBIN,TOTAL 1.2 mg/dl (0.2-1.3); BLOOD UREA NITROGEN 32 mg/dl (7-20); CALCIUM 8.3 mg/dl (8.4-10.2); CARBON DIOXIDE 18 mmol/L (21-31); CHLORIDE 107 mmol/L (97-110); GLUCOSE 151 mg/dl (70-220); POTASSIUM 3.8 mmol/L (3.5-5.1); SODIUM 133 mmol/L (135-144); TOTAL PROTEIN 5.5 g/dl (6.1-8.1)
[2019-04-17] MEDS: traMADol 50 MG TAB PO (17:22)
[2019-04-18] MEDS: PANTOPRAZOLE (EC) 40 MG TAB PO ×2 (06:31→17:49)
[2019-04-18 06:50] LABS: ADD MAN DIFF? NO
[2019-04-18 06:54] LABS: WHITE BLOOD COUNT 5.1 10^3/ul (4.8-10.8)
[2019-04-18 06:54] LABS: ABNORMAL IP MESSAGE 1; BASOPHIL # 0.1 10^3/ul (0.0-0.1); EOSINOPHILS # 0.5 10^3/ul (0.0-0.5); EOSINOPHILS % 9.5 % (0.0-7.0); HEMATOCRIT 21.9 % (37.0-47.0); HEMOGLOBIN 7.3 g/dl (12.0-16.0); LYMPHOCYTES # 1.2 10^3/ul (0.8-2.9); LYMPHOCYTES % 22.9 % (15.0-51.0); MEAN CORPUSCULAR HEMOGLOBIN 30.9 pg (29.0-33.0); MEAN CORPUSCULAR HGB CONC 33.3 g/dl (32.0-37.0); MEAN CORPUSCULAR VOLUME 92.8 fl (82.0-101.0); MEAN PLATELET VOLUME 10.8 fl (7.4-10.4); MONOCYTE # 0.5 10^3/ul (0.3-0.9); MONOCYTES % 10.5 % (0.0-11.0); NEUTROPHIL # 2.8 10^3/ul (1.6-7.5); NEUTROPHILS % 55.7 % (39.0-77.0); RED BLOOD COUNT 2.36 10^6/ul (4.20-5.40); RED CELL DISTRIBUTION WIDTH 16.9 % (11.5-14.5)
[2019-04-18 07:03] LABS: PLATELET COUNT 85 10^3/UL (140-415); POSITIVE DIFF @See below
[2019-04-18 07:27] LABS: ANION GAP 6 (5-13); BLOOD UREA NITROGEN 31 mg/dl (7-20); CALCIUM 8.3 mg/dl (8.4-10.2); CARBON DIOXIDE 19 mmol/L (21-31); CHLORIDE 108 mmol/L (97-110); CREATININE 1.49 mg/dl (0.44-1.00); GLUCOSE 88 mg/dl (70-220); POTASSIUM 3.8 mmol/L (3.5-5.1); SODIUM 133 mmol/L (135-144)
[2019-04-18] MEDS: MULTIVITAMINS THERAPEUTIC TAB PO (08:39)
[2019-04-18] MEDS: ASCORBIC ACID 500 MG TAB PO (08:39)
[2019-04-18] MEDS: ZINC SULFATE 220 MG CAP PO (08:39)
[2019-04-18] MEDS: LACTULOSE 30ML CUP PO ×2 (08:39→20:31)
[2019-04-18] MEDS: RIFAXIMIN 550 MG TAB PO ×2 (08:39→20:31)
[2019-04-18] MEDS: MUPIROCIN 2% 22 GM OINT TOP ×2 (08:39→20:31)
[2019-04-18] MEDS: MEROPENEM 1 GM/50ML(PMX) 50 ML IVPB ×2 (08:39→20:36)
[2019-04-18] MEDS: FUROSEMIDE 20 MG TAB PO (08:40)
[2019-04-19 05:50] LABS: ADD MAN DIFF? NO
[2019-04-19 05:55] LABS: BASOPHIL # 0.1 10^3/ul (0.0-0.1); BASOPHILS % 0.9 % (0.0-2.0); EOSINOPHILS # 0.5 10^3/ul (0.0-0.5); HEMATOCRIT 23.4 % (37.0-47.0); HEMOGLOBIN 7.7 g/dl (12.0-16.0); LYMPHOCYTES # 0.9 10^3/ul (0.8-2.9); LYMPHOCYTES % 16.8 % (15.0-51.0); MEAN CORPUSCULAR HEMOGLOBIN 31.3 pg (29.0-33.0); MEAN CORPUSCULAR HGB CONC 32.9 g/dl (32.0-37.0); MEAN CORPUSCULAR VOLUME 95.1 fl (82.0-101.0); MEAN PLATELET VOLUME 10.9 fl (7.4-10.4); MONOCYTE # 0.6 10^3/ul (0.3-0.9); MONOCYTES % 11.1 % (0.0-11.0); NEUTROPHIL # 3.5 10^3/ul (1.6-7.5); NEUTROPHILS % 61.8 % (39.0-77.0); PLATELET COUNT 103 10^3/UL (140-415); RED BLOOD COUNT 2.46 10^6/ul (4.20-5.40); RED CELL DISTRIBUTION WIDTH 17.1 % (11.5-14.5)
[2019-04-19 05:55] LABS: WHITE BLOOD COUNT 5.6 10^3/ul (4.8-10.8)
[2019-04-19 06:14] LABS: ANION GAP 5 (5-13); BLOOD UREA NITROGEN 28 mg/dl (7-20); CALCIUM 8.3 mg/dl (8.4-10.2); CARBON DIOXIDE 20 mmol/L (21-31); CHLORIDE 108 mmol/L (97-110); CREATININE 1.43 mg/dl (0.44-1.00); GLUCOSE 108 mg/dl (70-220); SODIUM 133 mmol/L (135-144)
[2019-04-19] MEDS: PANTOPRAZOLE (EC) 40 MG TAB PO ×2 (06:53→17:01)
[2019-04-19] MEDS: LACTULOSE 30ML CUP PO ×2 (09:36→20:25)
[2019-04-19] MEDS: MEROPENEM 1 GM/50ML(PMX) 50 ML IVPB ×2 (09:36→20:25)
[2019-04-19] MEDS: FUROSEMIDE 20 MG TAB PO (09:37)
[2019-04-19] MEDS: MULTIVITAMINS THERAPEUTIC TAB PO (09:37)
[2019-04-19] MEDS: ASCORBIC ACID 500 MG TAB PO (09:37)
[2019-04-19] MEDS: ZINC SULFATE 220 MG CAP PO (09:37)
[2019-04-19] MEDS: MUPIROCIN 2% 22 GM OINT TOP ×2 (09:38→20:25)
[2019-04-19] MEDS: RIFAXIMIN 550 MG TAB PO ×2 (09:41→20:25)
[2019-04-20 05:49] LABS: ADD MAN DIFF? NO
[2019-04-20 05:56] LABS: BASOPHIL # 0.1 10^3/ul (0.0-0.1); EOSINOPHILS # 0.5 10^3/ul (0.0-0.5); HEMATOCRIT 23.6 % (37.0-47.0); HEMOGLOBIN 7.8 g/dl (12.0-16.0); LYMPHOCYTES # 0.9 10^3/ul (0.8-2.9); LYMPHOCYTES % 17.9 % (15.0-51.0); MEAN CORPUSCULAR HEMOGLOBIN 31.2 pg (29.0-33.0); MEAN CORPUSCULAR HGB CONC 33.1 g/dl (32.0-37.0); MEAN CORPUSCULAR VOLUME 94.4 fl (82.0-101.0); MEAN PLATELET VOLUME 10.6 fl (7.4-10.4); MONOCYTE # 0.6 10^3/ul (0.3-0.9); MONOCYTES % 10.7 % (0.0-11.0); NEUTROPHIL # 3.1 10^3/ul (1.6-7.5); PLATELET COUNT 101 10^3/UL (140-415); RED CELL DISTRIBUTION WIDTH 17.1 % (11.5-14.5)
[2019-04-20 05:56] LABS: WHITE BLOOD COUNT 5.2 10^3/ul (4.8-10.8)
[2019-04-20 06:29] LABS: ANION GAP 6 (5-13); BLOOD UREA NITROGEN 28 mg/dl (7-20); CARBON DIOXIDE 21 mmol/L (21-31); CHLORIDE 108 mmol/L (97-110); CREATININE 1.32 mg/dl (0.44-1.00); GLUCOSE 121 mg/dl (70-220); SODIUM 135 mmol/L (135-144)
[2019-04-20] MEDS: PANTOPRAZOLE (EC) 40 MG TAB PO ×2 (07:26→18:22)
[2019-04-20] MEDS: MEROPENEM 1 GM/50ML(PMX) 50 ML IVPB (09:28)
[2019-04-20] MEDS: LACTULOSE 30ML CUP PO (09:30)
[2019-04-20] MEDS: MULTIVITAMINS THERAPEUTIC TAB PO (09:30)
[2019-04-20] MEDS: RIFAXIMIN 550 MG TAB PO (09:30)
[2019-04-20] MEDS: ASCORBIC ACID 500 MG TAB PO (09:30)
[2019-04-20] MEDS: ZINC SULFATE 220 MG CAP PO (09:31)
[2019-04-20] MEDS: FUROSEMIDE 20 MG TAB PO (09:31)
[2019-04-20] MEDS: MUPIROCIN 2% 22 GM OINT TOP (09:31)
[2019-04-20] MEDS: traMADol 50 MG TAB PO (09:35)
[2019-04-20] MEDS: ALBUMIN HUMAN 25% 50 ML IV (10:24)
[2019-04-20] MEDS: LIDOCAINE 1% (MPF) 5 ML VIAL (13:18)
== END 2019-04-20 19:40 | DRG 552 ==
LOC: E/R 09:56 → 6WM 12:30
PROC: 0W9G3ZZ Drainage of Peritoneal Cavity, Percutaneous Approach (ICD-10-PCS; principal; 2019-04-20)
DX: S32.039A Unspecified fracture of third lumbar vertebra, initial encounter for closed fracture (principal); N39.0 Urinary tract infection, site not specified; I85.00 Esophageal varices without bleeding; E44.0 Moderate protein-calorie malnutrition; S32.049A Unspecified fracture of fourth lumbar vertebra, initial encounter for closed fracture; S32.059A Unspecified fracture of fifth lumbar vertebra, initial encounter for closed fracture; I95.9 Hypotension, unspecified; D69.59 Other secondary thrombocytopenia; D63.8 Anemia in other chronic diseases classified elsewhere; K74.69 Other cirrhosis of liver; I12.9 Hypertensive chronic kidney disease with stage 1 through stage 4 chronic kidney disease, or unspecified chronic kidney disease; N18.9 Chronic kidney disease, unspecified; Z68.32 Body mass index [BMI] 32.0-32.9, adult; B96.20 Unspecified Escherichia coli [E. coli] as the cause of diseases classified elsewhere; B95.1 Streptococcus, group B, as the cause of diseases classified elsewhere; W01.0XXA Fall on same level from slipping, tripping and stumbling without subsequent striking against object, initial encounter; Y93.01 Activity, walking, marching and hiking; Y92.122 Bedroom in nursing home as the place of occurrence of the external cause; Y99.8 Other external cause status
CPT/HCPCS: 36415; 70450; 71045; 72128; 72131; 76705; 80048; 80053; 82150; 82270; 83690; 83735; 84100; 84484; 85025; 85610; 85730; 86850; 86900; 86901; 87081; 93005; 93306; 96374; 97116; 97162; 97530; 99285-25

== ENCOUNTER 2019-05-01 21:19 | Emergency (ER) | payer OTHER | END 2019-05-02 02:04 | disposition home or self-care (01) | LOC: E/R 05-02 02:04 | DX: R18.8 Other ascites (principal); D64.9 Anemia, unspecified; N18.9 Chronic kidney disease, unspecified | CPT/HCPCS: 80053; 83690; 84484; 85025; 99283 ==